=== PATIENT | male | born 1960 | race Caucasian/White ===

== ENCOUNTER 2023-03-17 13:31 | Emergency (ER) | payer BC, SELFPAY ==
[2023-03-17 13:33] VITALS: BP 132/84; PULSE 82; RESP 16; TEMP 36.7; O2SAT 98; BMI 30.4
--- NOTE | 2023-03-17 13:45 | ED_ITS ---
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 He states this happens to him relatively frequently usually goes disease primary care provider in gets Keflex. He is unable to get in with his PCP today and he is leaving town today for next few days so want to be seen here before he leaves. States he 1st noticed it this morning. This is exactly like his previous cellulitis he states. Denies fevers, chills, weakness, numbness, headache, chest pain, shortness of breath, abdominal pain. States he feels well and just wants to come in to get the antibiotics. Related Data Home Medications Medication Instructions Recorded Confirmed sertraline 100 mg tablet 100 mg PO DAILY 12/07/22 03/17/23 sildenafil (pulm.hypertension) 20 40 - 60 mg PO 03/17/23 mg tablet Allergies Allergy/AdvReac Type Severity Reaction Status Date / Time No Known Drug Allergies Allergy Verified 03/17/23 13:42 Review of Systems Status of ROS: Reports: 10 or more systems reviewed and unremarkable except as noted in History and below [facility] Medical History Below knee amputation ?S88.119A - Complete traumatic amputation at level between knee and ankle, unspecified lower leg, initial encounter (ICD-10) Social History Smoking Status: Never smoker How often do you have a drink containing alcohol: 2-3 times a week How many standard drinks containing alcohol do you have on a typical day: 3 or 4 AUDIT-C Alcohol total score: 4 Non-prescribed substance use: denies use Exam Narrative: Exam Narrative: Const: Well-nourished, Well-developed, in no distress Eyes: PERRL, no conjunctival injection, and symmetrical lids ENMT: Atraumatic external nose and ears. Moist mucous membranes. Neck: Symmetric, trachea midline, No thyromegaly. CVS: RRR, No murmurs or gallops. Peripheral pulses 2+ and equal in all extremities RESP: Unlabored respiratory effort. Clear to auscultation bilaterally. GI: Nontender/Nondistended, No rebound or guarding. MSK:Extremities w/o deformity, Normal Active ROM Skin: Warm, Dry. Cellulitis at the distal aspect of left below-knee amputation Neuro: Normal Muscle tone, No focal neurological deficits. Psych: Awake, Alert, & Oriented x3. Appropriate mood and affect. Const: Vital Signs, click to edit/add: Vital Signs - 24 hr 03/17/23 13:33 Temperature 98.0 F Pulse Rate [Right Pulse Oximeter] 82 Respiratory Rate 16 Blood Pressure [Ri ght Upper Arm] 132/84 Pulse Oximetry 98 Oxygen Delivery Me thod Room Air Course Vital Signs Vital signs: Initial Vital Signs Temperature 98.0 F 03/17/23 13:33 Temperature Source Temporal Artery Scan 03/17/23 13:33 Pulse Rate 82 03/17/23 13:33 Respiratory Rate 16 03/17/23 13:33 Blood Pressure 132/84 03/17/23 13:33 Blood Pressure Mean 100 03/17/23 13:33 Blood Pressure Position Sitting 03/17/23 13:33 Pulse Oximetry 98 03/17/23 13:33 Oxygen Delivery Method Room Air 03/17/23 13:33 Vital Signs Temperature 98.0 F 03/17/23 13:33 Pulse Rate 82 03/17/23 13:33 Respiratory Rate 16 03/17/23 13:33 Blood Pressure 132/84 03/17/23 13:33 Pulse Oximetry 98 03/17/23 13:33 Oxygen Delivery Method Room Air 03/17/23 13:33 Temperature 98.0 F 03/17/23 13:33 Pulse Rate 82 03/17/23 13:33 Respiratory Rate 16 03/17/23 13:33 Blood Pressure 132/84 03/17/23 13:33 Pulse Oximetry 98 03/17/23 13:33 Oxygen Delivery Method Room Air 03/17/23 13:33 Medical Decision Making MDM Narrative Medical decision making narrative: Patient is a 63-year-old male presents emergency department for size to his left leg at the end of his below-knee amputation. He states this happens to him frequently and whenever he gets Keflex it goes away. He denies any of the symptoms says he feels well. States this looks and feels exactly like his previous cellulitis. He is otherwise doing well. Since this is a chronic issue for him otherwise and goes with Keflex and he is having no systemic symptoms with normal vital signs I do not believe is necessary to do further workup on this patient. He was given strict return precautions. Discharge Plan Discharge Clinical Impression: Cellulitis Qualifiers: Site of cellulitis: extremity Site of cellulitis of extremity: lower extremity Laterality: left Qualified Code(s): L03.116 - Cellulitis of left lower limb Patient Disposition: Home, Self-Care Condition: Stable Instructions: Cellulitis (ED) Additional Instructions: Take the Keflex as directed. Follow-up with primary care provider. If he develops any worsening symptoms at all please return to emergency department for further workup. Prescriptions: No Action sertraline 100 mg tablet 100 mg PO DAILY sildenafil (pulm.hypertension) 20 mg tablet 40 - 60 mg PO Follow Up/Referrals: Calderon Gan MD [Primary Care Provider] - Stand Alone Forms: [employer] Info Instructions
== END 2023-03-17 14:06 | disposition home or self-care (01) ==
PROVIDERS: Emergency Provider Student in an Organized Health Care Education/Training Program; PCP Family Medicine
DX: L03.116 Cellulitis of left lower limb (principal)
CPT/HCPCS: 99282; 99283

== ENCOUNTER 2023-03-19 20:20 | Emergency (ER) | payer BC, SELFPAY ==
[2023-03-19 20:28] VITALS: BP 132/76; PULSE 63; RESP 18; TEMP 36.2; O2SAT 96; BMI 30.4
--- NOTE | 2023-03-19 20:48 | ED_ITS ---
HPI - General Adult General Chief complaint: Skin/Abscess/Foreign Body Stated complaint: Skin infection-in th-not improving Time Seen by Provider: 03/19/23 20:42 History of Present Illness HPI narrative: Pt c/o reddness and swelling on left leg at amputation site . Amputation of left leg occurred in 2012. Pt states he gets these infections on and off, but started Keflex on and the rash has worsened. Pt states he was on Keflex in past. Pt's amputated leg has yellow callous on bottom, which pt states is normal because he just got a new prosthetic and needs to break it in. 63-year-old man presenting to the emergency department following up of a diagnosis of cellulitis little over 2 days ago in left below the knee amputation. Was initiated on cephalexin. Per my read of records it looks like distal stump was described as the source. Keflex looks to have been prescribed has b.i.d. although apparently Mr. Harris was recommended to take this every 4 hours he says by nursing on departure; this is puzzling. He has not had any fever. Has had now spreading redness in the left leg. Says the yellow crusting at the end of his stump is chronically there. What is new is the redness that is spreading up toward the posterior knee and inner thigh. Describes it as spreading from the back of the knee up the thigh and then distally. Not from distal leg up. No fever drainage. He is wondering if he needs some IV antibiotics. Related Data Home Medications Medication Instructions Recorded Confirmed sertraline 100 mg tablet 100 mg PO DAILY 12/07/22 03/19/23 sildenafil (pulm.hypertension) 20 40 - 60 mg PO 03/17/23 mg tablet Previous Rx's Medication Instructions Recorded cephalexin 500 mg capsule 500 mg PO TID #21 caps 03/19/23 doxycycline hyclate 100 mg capsule 100 mg PO BID #20 caps 03/19/23 Allergies Allergy/AdvReac Type Severity Reaction Status Date / Time No Known Drug Allergies Allergy Verified 03/19/23 20:32 Review of Systems Status of ROS: Reports: 6 or more systems reviewed and unremarkable except as noted in History and below [facility] Medical History Below knee amputation ?S88.119A - Complete traumatic amputation at level between knee and ankle, unspecified lower leg, initial encounter (ICD-10) Social History Smoking Status: Never smoker Do you use any of these nicotine containing products: None Second hand tobacco smoke exposure: No How often do you have a drink containing alcohol: 2-3 times a week How many standard drinks containing alcohol do you have on a typical day: 3 or 4 AUDIT-C Alcohol total score: 4 Non-prescribed substance use: denies use service: No Exam Narrative: Exam Narrative: Pleasant. NAD. Left leg elevated in exam chair. Blotchy calor and associated mild redness in the posterior medial calf anti-geniculate area and inner left thigh. Little tender. More indurated centrally just the lower aspect of the geniculate fossa into the thigh. About 2 in in diameter area. There is a spot, almost like a small venous prominence, that almost appears to be in the lower aspect of this indurated area. I think this is more this site actually than the distal stump which does have surrounding erythema to this yellow crusting patch but no calor or actual induration to the skin there. Heart in regular rate and rhythm. Is not terribly tender to palpation in the areas as mentioned above Const: Vital Signs, click to edit/add: Vital Signs - 24 hr 03/19/23 20:28 Temperature 97.1 F L Pulse Rate [Pulse Oximeter] 63 Respiratory Rate 18 Blood Pressure [Ri ght Upper Arm] 132/76 Pulse Oximetry 96 Oxygen Delivery Me thod Room Air Documenting provider has reviewed patient's vital signs: yes Course Vital Signs Vital signs: Initial Vital Signs Temperature 97.1 F L 03/19/23 20:28 Temperature Source Temporal Artery Scan 03/19/23 20:28 Pulse Rate 63 03/19/23 20:28 Respiratory Rate 18 03/19/23 20:28 Blood Pressure 132/76 03/19/23 20:28 Blood Pressure Mean 94 03/19/23 20:28 Blood Pressure Position Sitting 03/19/23 20:28 Pulse Oximetry 96 03/19/23 20:28 Oxygen Delivery Method Room Air 03/19/23 20:28 Vital Signs Temperature 97.1 F L 03/19/23 20:28 Pulse Rate 63 03/19/23 20:28 Respiratory Rate 18 03/19/23 20:28 Blood Pressure 132/76 03/19/23 20:28 Pulse Oximetry 96 03/19/23 20:28 Oxygen Delivery Method Room Air 03/19/23 20:28 Temperature 97.1 F L 03/19/23 20:28 Pulse Rate 63 03/19/23 20:28 Respiratory Rate 18 03/19/23 20:28 Blood Pressure 132/76 03/19/23 20:28 Pulse Oximetry 96 03/19/23 20:28 Oxygen Delivery Method Room Air 03/19/23 20:28 Medical Decision Making MDM Narrative Medical decision making narrative: I would check labs now. Does appear to have a cellulitis. Does not appear to be fluctuant or consistent with any abscess formation at this time. Will need to clarify cephalexin dosing. I discussed already breaking in this new prosthetic as likely source of irritation causing cellulitis. Expresses a reluctance not to wear it and go to crutching temporarily, but I think this is going to be important. IVs established. White count is indeed elevated at about 13.4. CRP also elevated. Given a dose of Rocephin. The rash would appear to be more of a strep organism though I think it would be prudent to cover better for staph as well. I am not sure we have seen antibiotic failure just unusual dosing regimen. Also given a dose of doxycycline here and to continue outpatient in addition to the cephalexin. Blood cultures are also pending. Was given IV hydration. Over time in the emergency department there did appear to be some spread of this redness. Attempted to outline. I presume this to be trajectory. Will need some time to catch up. There was no fever. See patient discharge plan Lab Data Lab results reviewed: Yes I reviewed the patient's lab results Labs: Lab Results 03/19/23 Range/Units 19:15 WBC 13.40 H (4.50-11.00) K/uL RBC 4.38 (4.30-5.90) m/uL Hgb 13.7 (13.5-17.5) gm/dL Hct 40.0 (37.0-53.0) % MCV 91 (80-100) fL MCH 31 (26-34) pg MCHC 34 (32-36) gm/dL RDW Coeff of Vignesh 12.9 (11.5-15.5) % Plt Count 260 (140-440) K/uL Neut % (Auto) 59.5 (42.0-72.0) % Lymph % (Auto) 30.3 (20-44) % [place] % (Auto) 9.0 (0.0-11.0) % Eos % (Auto) 0.7 (0.0-7.0) % Baso % (Auto) 0.4 (0.0-3.0) % Neut # (Auto) 8.00 H (1.7-7.0) K/uL Lymph # (Auto) 4.10 H (0.90-2.90) K/uL [place] # (Auto) 1.20 H (0.00-0.90) K/UL Eos # (Auto) 0.10 (0.00-0.50) K/uL Baso # (Auto) 0.10 (0.00-0.30) K/uL Abs Immat Gran (auto) 0.00 (0.00-0.30) K/uL Imm/Tot Granulo (auto) 0.1 % Sodium 137 (135-149) mmol/L Potassium 4.0 (3.6-5.1) mmol/L Chloride 104 (96-114) mmol/L Carbon Dioxide 24 (20-32) mmol/L Anion Gap 9 (7-15) mEq/L BUN 15 (7-30) mg/dL Creatinine 0.7 (0.5-1.5) mg/dL Estimated Creat Clear 72.20 Estimated GFR 103 ml/min Glucose 98 (60-115) mg/dL Calcium 9.4 (8.4-10.6) mg/dL C-Reactive Protein 8.2 H (0.5-1.0) mg/dL Discharge Plan Discharge Clinical Impression: Cellulitis Patient Disposition: Home, Self-Care Condition: Stable Additional Instructions: Report/return for fever, marked increase in pain or redness or heat , spreading 2 inches beyond the outline. Be sure to get your leg elevated at the level of your heart at rest. Try to avoid wearing your prosthetic over this next week if possible. I do think it is important. If you need crutches we can supply you with some. Change cephalexin dosing to 500 mg 3 times a day. Will add some doxycycline to that as well. Updated cephalexin script will be at the pharmacy as well as doxycycline. All to complete a total of 10 days of treatment. Protect yourself from the sun while taking doxycycline and for a few days beyond the course. Activity Level: No Restrictions Discharge Diet: Regular Prescriptions: New doxycycline hyclate 100 mg capsule 100 mg PO BID Qty: 20 0RF cephalexin 500 mg capsule 500 mg PO TID Qty: 21 0RF No Action sertraline 100 mg tablet 100 mg PO DAILY sildenafil (pulm.hypertension) 20 mg tablet 40 - 60 mg PO Follow Up/Referrals: Calderon Gan MD [Primary Care Provider] - Stand Alone Forms: [employer] Info Instructions
[2023-03-19 21:21] LABS: Basophils Percent Auto 0.4 % (0.0-3.0); Eosinophils Percent Auto 0.7 % (0.0-7.0); Hemoglobin* 13.7 gm/dL (13.5-17.5); Immature Granulocytes Pct Auto 0.1 %; Lymphocytes Percent Auto 30.3 % (20-44); Mean Corpuscular HGB Conc 34 gm/dL (32-36); Mean Corpuscular Hemoglobin 31 pg (26-34); Mean Corpuscular Volume 91 fL (80-100); Neutrophils Percent Auto 59.5 % (42.0-72.0); Platelet Count* 260 K/uL (140-440); RDW Coefficient of Variation % 12.9 % (11.5-15.5); Red Blood Count 4.38 m/uL (4.30-5.90)
[2023-03-19] MEDS: 0.9 % SODIUM CHLORIDE 1000 ml 1,000 ML IV (21:23)
[2023-03-19 21:42] LABS: Slide Review Reflex No
[2023-03-19 21:55] LABS: Chloride* 104 mmol/L (96-114); Sodium* 137 mmol/L (135-149)
[2023-03-19 21:57] LABS: Creatinine* 0.7 mg/dL (0.5-1.5); Estimated Glomerular Filt Rate 103 ml/min
[2023-03-19 21:58] LABS: Anion Gap 9 mEq/L (7-15); Blood Urea Nitrogen* 15 mg/dL (7-30); Carbon Dioxide* 24 mmol/L (20-32); Glucose* 98 mg/dL (60-115)
[2023-03-19 21:59] LABS: Calcium* 9.4 mg/dL (8.4-10.6)
[2023-03-19 22:01] LABS: C Reactive Protein* 8.2 mg/dL (0.5-1.0)
[2023-03-19] MEDS: cefTRIAXone 1 GM in 0.9 % SODIUM CHLORIDE Mini-bag 100 ML IVPB (22:13)
[2023-03-19] MEDS: DOXYCYCLINE HYCLATE 100 MG PO (23:29)
== END 2023-03-19 23:40 | disposition home or self-care (01) ==
PROVIDERS: Emergency Provider Family Medicine; PCP Family Medicine
DX: L03.116 Cellulitis of left lower limb (principal); Z89.512 Acquired absence of left leg below knee
CPT/HCPCS: 36415; 80048; 85025; 86140; 87040; 96361; 96374; 99283; 99284; A9270; J0696; J7030

== ENCOUNTER 2023-03-21 13:56 | Inpatient (IN) | payer BC, SELFPAY ==
[2023-03-21 14:04] VITALS: BP 145/80; PULSE 60; RESP 16; TEMP 35.9; O2SAT 97; BMI 30.4
--- NOTE | 2023-03-21 15:04 | ED.GENADULT ---
HPI - General Adult General Time Seen by Provider: 15:04 Date Seen: 03/21/23 Chief complaint: Skin/Abscess/Foreign Body Stated complaint: Infection L leg Time Seen by Provider: 03/21/23 14:56 Source: patient, RN notes reviewed and old records reviewed Mode of arrival: ambulatory Limitations: no limitations History of Present Illness HPI narrative: Miguel is a 63-year-old male coming in with ongoing pain, redness and swelling along the distal aspect of his left stump where he had a below the knee amputation. In 2012 patient had a left [id number] amputation done for recurrent infections and issues from a prior traumatic event with farm equipment. He has had recurrent cellulitis along this medial left lower stump. He recently did get a new sleeve and has a new callus on the distal aspect. The pain is more medially. He did come into the ER on March 17 and did get Keflex, there is a question of dosing of this. He returned for ongoing symptoms on March 19, did get a dose of IV Rocephin, his Keflex was increased to 3 times a day, 500 mg and doxycycline was added in. [place] 19 [place] [address] and C reactive protein elevated at 8.2. He is not feeling improved as far as the skin changes in the pain in the area of redness. He has been leaving the prosthetic off, walking with crutches to try to allow this to settle. He has not had any documented fevers but on and Tuesday of this last week had episodes where he felt chilled and nauseated with it, just did not feel well. None since then. He does not recollect any history of MRSA. Related Data Home Medications Medication Instructions Recorded Confirmed sertraline 100 mg tablet 100 mg PO DAILY 12/07/22 03/19/23 sildenafil (pulm.hypertension) 20 40 - 60 mg PO 03/17/23 mg tablet Previous Rx's Medication Instructions Recorded cephalexin 500 mg capsule 500 mg PO TID #21 caps 03/19/23 doxycycline hyclate 100 mg capsule 100 mg PO BID #20 caps 03/19/23 Allergies Allergy/AdvReac Type Severity Reaction Status Date / Time No Known Drug Allergies Allergy Verified 03/19/23 20:32 Review of Systems Status of ROS: Reports: 6 or more systems reviewed and unremarkable except as noted in History and below [facility] Medical History Below knee amputation ?S88.119A - Complete traumatic amputation at level between knee and ankle, unspecified lower leg, initial encounter (ICD-10) Social History Smoking Status: Never smoker Do you use any of these nicotine containing products: None Second hand tobacco smoke exposure: No How often do you have a drink containing alcohol: 2-3 times a week How many standard drinks containing alcohol do you have on a typical day: 3 or 4 AUDIT-C Alcohol total score: 4 Non-prescribed substance use: denies use service: No Exam Const: Vital Signs, click to edit/add: Vital Signs - 24 hr 03/21/23 14:04 Temperature 96.7 F L Pulse Rate [Pulse Oximeter] 60 Respiratory Rate 16 Blood Pressure [Ri ght Upper Arm] 145/80 H Pulse Oximetry 97 Oxygen Delivery Me thod Room Air Patient is a very pleasant 63-year-old gentleman. He is alert, interactive, no apparent distress. Face is atraumatic, speech normal. Lungs are clear with good air entry, no wheezing crackles, no tachypnea. CV regular rate and rhythm, no murmur, normal S1 and S2. His left stump has a callus at the distal aspect but is not tender, there is no expressible discharge. The erythema that he is tender is more along this medial aspect that starts along the medial knee, does not go up to the thigh. He does state there is a little tenderness along this medial left thigh but there is no erythema. I do not feel any palpable cord, there is erythema heat and swelling without fluctuance along this medial stump area. Documenting provider has reviewed patient's vital signs: yes Course Course Hospital Course: Besides cellulitis that is not responding to current medical management, do think thromboembolic disease needs to be considered here. We will get an ultrasound, repeat his labs, will place an IV. If this is looking to be more cellulitic process that is not responding to outpatient doxycycline and Keflex together, do need to consider antibiotics. Imaging might need to be considered of this extremity to ensure that there is no underlying abscess which is not clinically evident based on exam. I do not feel we need to proceed with advanced imaging at this time. Patient is ultimately interested in IV antibiotics if clinically appropriate and agree that we do need to consider this if we do feel that cellulitis is the path we are taking. I am not doing blood cultures at this time as patient has been on oral antibiotics for days, has no vital sign changes in clinically looks quite stable. Reevaluation(s) Time of Reevaluation #1: 17:08 Reevaluation #1: Reviewed with patient the plan for hospitalization, initiation of IV vancomycin and further advanced imaging of his extremity tomorrow. He is in agreement with this plan. Consultations Consultation #1: Have reviewed case with Dr. Mills, she agrees with hospitalization, initiation of vancomycin and further advanced imaging to be done tomorrow. Will update the patient. Time: 16:50 Vital Signs Vital signs: Initial Vital Signs Temperature 96.7 F L 03/21/23 14:04 Temperature Source Temporal Artery Scan 03/21/23 14:04 Pulse Rate 60 03/21/23 14:04 Respiratory Rate 16 03/21/23 14:04 Blood Pressure 145/80 H 03/21/23 14:04 Blood Pressure Mean 101 03/21/23 14:04 Blood Pressure Position Sitting 03/21/23 14:04 Pulse Oximetry 97 03/21/23 14:04 Oxygen Delivery Method Room Air 03/21/23 14:04 Vital Signs Temperature 96.7 F L 03/21/23 14:04 Pulse Rate 60 03/21/23 14:04 Respiratory Rate 16 03/21/23 14:04 Blood Pressure 145/80 H 03/21/23 14:04 Pulse Oximetry 97 03/21/23 14:04 Oxygen Delivery Method Room Air 03/21/23 14:04 Temperature 96.7 F L 03/21/23 14:04 Pulse Rate 60 03/21/23 14:04 Respiratory Rate 16 03/21/23 14:04 Blood Pressure 145/80 H 03/21/23 14:04 Pulse Oximetry 97 03/21/23 14:04 Oxygen Delivery Method Room Air 03/21/23 14:04 Medical Decision Making Lab Data Labs: Lab Results 03/21/23 Range/Units 15:34 WBC 10.32 (4.50-11.00) K/uL RBC 4.44 (4.30-5.90) m/uL Hgb 13.9 (13.5-17.5) gm/dL Hct 41.6 (37.0-53.0) % MCV 94 (80-100) fL MCH 31 (26-34) pg MCHC 33 (32-36) gm/dL RDW Coeff of Vignesh 13.1 (11.5-15.5) % Plt Count 300 (140-440) K/uL Neut % (Auto) 46.4 (42.0-72.0) % Lymph % (Auto) 42.7 (20-44) % [place] % (Auto) 7.3 (0.0-11.0) % Eos % (Auto) 2.6 (0.0-7.0) % Baso % (Auto) 0.8 (0.0-3.0) % Neut # (Auto) 4.79 (1.7-7.0) K/uL Lymph # (Auto) 4.41 H (0.90-2.90) K/uL [place] # (Auto) 0.80 (0.00-0.90) K/UL Eos # (Auto) 0.27 (0.00-0.50) K/uL Baso # (Auto) 0.08 (0.00-0.30) K/uL Abs Immat Gran (auto) 0.02 (0.00-0.30) K/uL Imm/Tot Granulo (auto) 0.2 % Sodium 139 (135-149) mmol/L Potassium 4.1 (3.6-5.1) mmol/L Chloride 105 (96-114) mmol/L Carbon Dioxide 26 (20-32) mmol/L Anion Gap 8 (7-15) mEq/L BUN 17 (7-30) mg/dL Creatinine 0.7 (0.5-1.5) mg/dL Estimated Creat Clear 72.20 Estimated GFR 103 ml/min Glucose 94 (60-115) mg/dL Lactate 0.9 (0.5-1.9) mmol/L Calcium 9.6 (8.4-10.6) mg/dL C-Reactive Protein 6.8 H (0.5-1.0) mg/dL Imaging Data Venous US: Attestation: I have reviewed the pertinent imaging results. Radiologist's impression: Patient: ASHISH COX Facility:[facility] Patient ID:?[id number] Site Patient ID:?[id number]. Site :?[id number] Study:?US Extremity Left LEV-03/21/2023 4:20:19 PM Ordering Physician:Chandler Richardson Final Report: INDICATION: Redness, swelling, pain, status post [id number] amputation TECHNIQUE: Ultrasound venous duplex lower left extremity. Compression venous exam was performed using ford-scale, color Doppler, and spectral Doppler analysis. COMPARISON: None. FINDINGS: Sonographic imaging demonstrates the left common femoral, femoral, popliteal, and greater saphenous and the contralateral right common femoral veins to be fully compressible with normal color Doppler blood flow. Status post [id number] amputation, therefore no posterior tibial veins are present. Small amount of free fluid/edema within the medial left lower extremity at the areas of redness. IMPRESSION: 1. No sonographic evidence of a left lower extremity deep venous thrombosis. 2. Small amount of free fluid/edema within the medial left lower extremity. Findings could be postsurgical, however correlate for superimposed infection. Dictated by Maryuri Chatterjee MD @ 03/21/2023 4:42:48 PM Dictated by: Maryuri Chatterjee MD @ 03/21/2023 16:43:44 Discharge Plan Discharge Clinical Impression: Cellulitis Patient Disposition: Admitted As Observation
--- NOTE | 2023-03-21 15:19 | CRLHL7_ITS ---
For Patients: As a result of the Century Cures Act, medical imaging exams and procedure reports are released immediately into your electronic medical record. You may view this report before your referring provider. If you have questions, please contact your health care provider. INDICATION: Redness, swelling, pain, status post fykbz-ibw-upwz amputation TECHNIQUE: Ultrasound venous duplex lower left extremity. Compression venous exam was performed using ford-scale, color Doppler, and spectral Doppler analysis. COMPARISON: None. FINDINGS: Sonographic imaging demonstrates the left common femoral, femoral, popliteal, and greater saphenous and the contralateral right common femoral veins to be fully compressible with normal color Doppler blood flow. Status post [id number] amputation, therefore no posterior tibial veins are present. Small amount of free fluid/edema within the medial left lower extremity at the areas of redness. IMPRESSION: 1. No sonographic evidence of a left lower extremity deep venous thrombosis. 2. Small amount of free fluid/edema within the medial left lower extremity. Findings could be postsurgical, however correlate for superimposed infection. Dictated by Maryuri Chattejree MD @ 03/21/2023 4:42:48 PM Dictated by: Maryuri Chatterjee MD @ 03/21/2023 16:43:44 (Electronically Signed)
[2023-03-21 15:45] LABS: Basophils Absolute Auto 0.08 K/uL (0.00-0.30); Basophils Percent Auto 0.8 % (0.0-3.0); Eosinophils Absolute Auto 0.27 K/uL (0.00-0.50); Eosinophils Percent Auto 2.6 % (0.0-7.0); Hematocrit 41.6 % (37.0-53.0); Hemoglobin* 13.9 gm/dL (13.5-17.5); Immature Granulocytes Abs Auto 0.02 K/uL (0.00-0.30); Immature Granulocytes Pct Auto 0.2 %; Lymphocytes Absolute Auto 4.41 K/uL (0.90-2.90); Lymphocytes Percent Auto 42.7 % (20-44); Mean Corpuscular HGB Conc 33 gm/dL (32-36); Mean Corpuscular Hemoglobin 31 pg (26-34); Mean Corpuscular Volume 94 fL (80-100); Monocytes Percent Auto 7.3 % (0.0-11.0); Neutrophils Absolute Auto 4.79 K/uL (1.7-7.0); Neutrophils Percent Auto 46.4 % (42.0-72.0); Platelet Count* 300 K/uL (140-440); RDW Coefficient of Variation % 13.1 % (11.5-15.5); Red Blood Count 4.44 m/uL (4.30-5.90); White Blood Count* 10.32 K/uL (4.50-11.00)
[2023-03-21 15:47] LABS: Lactate* 0.9 mmol/L (0.5-1.9)
[2023-03-21 16:17] LABS: Chloride* 105 mmol/L (96-114)
[2023-03-21 16:18] LABS: Potassium* 4.1 mmol/L (3.6-5.1); Sodium* 139 mmol/L (135-149)
[2023-03-21 16:20] LABS: Creatinine* 0.7 mg/dL (0.5-1.5); Estimated Glomerular Filt Rate 103 ml/min
[2023-03-21 16:21] LABS: Anion Gap 8 mEq/L (7-15); Blood Urea Nitrogen* 17 mg/dL (7-30); Calcium* 9.6 mg/dL (8.4-10.6); Carbon Dioxide* 26 mmol/L (20-32); Glucose* 94 mg/dL (60-115)
[2023-03-21 16:24] LABS: C Reactive Protein* 6.8 mg/dL (0.5-1.0)
[2023-03-21 16:35] LABS: Slide Review Reflex No
[2023-03-21 17:20] VITALS: BP 169/96; PULSE 51; TEMP 36.1; O2SAT 97
[2023-03-21 18:41] VITALS: BP 155/87; PULSE 70; RESP 16; TEMP 36.8; O2SAT 97; BMI 30.1
--- NOTE | 2023-03-21 19:43 | PM.IMHP1 ---
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 He has had cellulitis of his stump several times before, but never this bad. With the heat recently, he has found his stump gets very sweaty while wearing his sleeve and prosthesis. He did some work on his deck recently and had a few cuts to his hands, but nothing on his legs. On Tuesday he felt some swelling and tenderness coming on in his left lower extremity. On , he had chills and he could see the area looked like cellulitis. He went to the urgent care where he was prescribed cephalexin 3 times a day. He to get as prescribed and has not missed any doses. The infection seemed to get worse despite being on that and so he went back to the emergency department on Tuesday where he was given a dose of ceftriaxone and a prescription for doxycycline. He started taking that Tuesday evening. He had some chills again today. While the redness in the upper thigh has gone down, the tenderness and erythema of the lower left leg have worsened some and it is starting to get swollen in certain areas and feels like there is fluid under the skin. He has been using Tylenol as needed for pain and feels that that is enough. He does not think he has had any fevers, just chills. He denies any shortness of breath. No rashes other than the cellulitis on his leg. Review of Systems Status of ROS: Reports: 10 or more systems reviewed and unremarkable except as noted in History and below [facility] Medical History (Updated 03/21/23 @ 20:38 by Alexia Mills MD) Pterygium of both eyes ?H11.003 - Unspecified pterygium of eye, bilateral (ICD-10) Hyperopia of both eyes with astigmatism and presbyopia ?H52.03 - Hypermetropia, bilateral (ICD-10) ?H52.203 - Unspecified astigmatism, bilateral (ICD-10) ?H52.4 - Presbyopia (ICD-10) Anxiety ?F41.9 - Anxiety disorder, unspecified (ICD-10) Postoperative anemia due to acute blood loss (~06/2016) ?D62 - Acute posthemorrhagic anemia (ICD-10) Post-traumatic osteoarthritis of right hip ?M16.51 - Unilateral post-traumatic osteoarthritis, right hip (ICD-10) Gilbert syndrome ?E80.4 - Gilbert syndrome (ICD-10) Hyperbilirubinemia ?E80.6 - Other disorders of bilirubin metabolism (ICD-10) Hyperplastic colon polyp (~10/2010) ?K63.5 - Polyp of colon (ICD-10) Thoracic or lumbosacral neuritis or radiculitis, unspecified Lumbosacral spondylosis without myelopathy ?M47.817 - Spondylosis without myelopathy or radiculopathy, lumbosacral region (ICD-10) Erectile dysfunction ?N52.9 - Male erectile dysfunction, unspecified (ICD-10) Surgical History (Updated 03/21/23 @ 18:21 by Alexia Mills MD) History of open reduction and internal fixation (ORIF) procedure (~07/17/16) ?Z98.890 - Other specified postprocedural states (ICD-10) Hx of total hip arthroplasty (~06/2016) ?Z96.649 - Presence of unspecified artificial hip joint (ICD-10) History of ankle surgery ?Z98.890 - Other specified postprocedural states (ICD-10) H/O colonoscopy ?Z98.890 - Other specified postprocedural states (ICD-10) Below knee amputation (~08/2012) ?S88.119A - Complete traumatic amputation at level between knee and ankle, unspecified lower leg, initial encounter (ICD-10) Family History (Updated 03/21/23 @ 18:23 by Alexia Mills MD) Father Prostate cancer, Onset Age: 65 Mother Dementia Paternal Grandfather Diabetes Parkinsonism Social History (Updated 03/21/23 @ 19:50 by Alexia Mills MD) Narrative: [place]. Denies tobacco use. Lifelong nonsmoker. EtOH 2-3 beers per week. Denies recreational drug use. Full Code. What is your current living situation?: I presently have a place to live Problems where you live: no known problems Problems where you live details: n/a In the past 12 months, utilities in danger of being shut off: no In the past 12 mos, have been you worried that your food would run out before you had money to buy more?: never true In the past 12 mos, the food you bought just didn't last and you didn't have money to buy more?: never true Highest level of school completed/degree received: high school graduate Smoking Status: Never smoker Do you use any of these nicotine containing products: None Second hand tobacco smoke exposure: No How often do you have a drink containing alcohol: 2-3 times a week How many standard drinks containing alcohol do you have on a typical day: 3 or 4 AUDIT-C Alcohol total score: 4 Non-prescribed substance use: denies use Caffeine: No How often does anyone, including family, friends and others, physically hurt you: never How often does anyone, including family, friends and others, insult or talk down to you: never How often does anyone, including family, friends and others, threaten you with harm: never How often does anyone, including family, friends and others, scream or curse at you: never service: No Meds Home Medications and Allergies Home Medications Medication Instructions Recorded Confirmed Type sertraline 100 mg tablet 100 mg PO DAILY 12/07/22 03/21/23 History sildenafil (pulm.hypertension) 20 40 - 60 mg PO PRN 03/17/23 History mg tablet Home Medication Comments: Cephalexin 500 mg TID started 03/17/23 Doxycycline 100 mg BID started 03/19/23 Allergies Allergy/AdvReac Type Severity Reaction Status Date / Time No Known Drug Allergies Allergy Verified 03/19/23 20:32 Exam Narrative: Exam Narrative: General: No acute distress. Awake alert oriented x3. HEENT: Normocephalic atraumatic, pupils equally round and reactive to light and accommodation. Oropharynx clear. Mucous membranes are moist. No cervical lymphadenopathy, thyromegaly or carotid bruits. No JVD. Cardiovascular: Regular rate and rhythm. No murmurs, gallops, or rubs. Chest: No increased work of breathing. Clear to auscultation bilaterally. No crackles or wheezes. Abdomen: Bowel sounds present. Soft, nondistended, nontender. No hepatosplenomegaly or masses. Extremities: RLE: No edema, no cyanosis or clubbing. LBKA: chronic callous at base of stump with mild surrounding erythema, not indurated, non tender. Induration with calor, rubor, tenderness over medial left leg, just below knee. There are two fluctuant areas here as well that are tender to palpation, about the size of a large marble. No open areas or drainage. Mild erythema without tenderness extends up the thigh medially about detention to groin. This is very light and difficult to discern. Patient states this area has improved since Tuesday. Skin: No jaundice, no pallor, no other rashes. Const: Vital Signs, click to edit/add: Vital Signs - 24 hr 03/21/23 14:04 03/21/23 17:20 03/21/23 18:41 Temperature 96.7 F L 96.9 F L 98.3 F Pulse Rate [Pulse Oximeter] 60 51 L 70 Respiratory Rate 16 16 Blood Pressure [Ri ght Arm] 155/87 H Blood Pressure [Ri ght Upper Arm] 145/80 H 169/96 H Pulse Oximetry 97 97 97 Oxygen Delivery Me thod Room Air Room Air Hospitalist - H&P: Result Labs Labs: Short CBC 03/21/23 Range/Units 15:34 WBC 10.32 (4.50-11.00) K/uL Hgb 13.9 (13.5-17.5) gm/dL Hct 41.6 (37.0-53.0) % Plt Count 300 (140-440) K/uL BMP 03/21/23 15:34 Sodium 139 Potassium 4.1 Chloride 105 Carbon Dioxide 26 BUN 17 Creatinine 0.7 Glucose 94 Calcium 9.6 Ordering Physician: Debra Faust M.D. Date of Service: 03/21/23 Procedure(s): US venous LE LT Accession Number(s): [id number] cc: Calderon Gan M.D.; Debra Faust M.D.~ For Patients: As a result of the 21st Century Cures Act, medical imaging exams and procedure reports are released immediately into your electronic medical record. You may view this report before your referring provider. If you have questions, please contact your health care provider. INDICATION: Redness, swelling, pain, status post [id number] amputation TECHNIQUE: Ultrasound venous duplex lower left extremity. Compression venous exam was performed using ford-scale, color Doppler, and spectral Doppler analysis. COMPARISON: None. FINDINGS: Sonographic imaging demonstrates the left common femoral, femoral, popliteal, and greater saphenous and the contralateral right common femoral veins to be fully compressible with normal color Doppler blood flow. Status post [id number] amputation, therefore no posterior tibial veins are present. Small amount of free fluid/edema within the medial left lower extremity at the areas of redness. IMPRESSION: 1. No sonographic evidence of a left lower extremity deep venous thrombosis. 2. Small amount of free fluid/edema within the medial left lower extremity. Findings could be postsurgical, however correlate for superimposed infection. Dictated by Maryuri Chatterjee MD @ 03/21/2023 4:42:48 PM Dictated by: Maryuri Chatterjee MD @ 03/21/2023 16:43:44 (Electronically Signed) Assessment and Plan Assessment and plan (1) Cellulitis: Problem comment: - While it appears the induration, WBC and CRP have improved on doxycycine, he has two fluid collections that may require drainage. Start Vanco and obtain MRI. May need ortho or surgical consultation if there is abscess or osteo. - Elevate LE >12hours out of every 24. 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 Mar 2021: increased sertraline (Zoloft) to 100mg - Continue sertraline Status: Chronic
--- NOTE | 2023-03-21 20:08 | CRLHL7_ITS ---
For Patients: As a result of the Century Cures Act, medical imaging exams and procedure reports are released immediately into your electronic medical record. You may view this report before your referring provider. If you have questions, please contact your health care provider. INDICATION: Redness and swelling. Amputation below the knee. COMPARISON: None. TECHNIQUE: Axial T1 and PD fat-sat, sagittal PD and T2 fat-sat and coronal PD and STIR left knee sequences. FINDINGS: Medial compartment: Meniscus: Intact. Articular cartilage: Shallow grade 2 fissure in the central condyle. Remainder uniform. MCL: Intact. - Cruciate ligaments: ACL: Intact. PCL: Intact. - Lateral compartment: Meniscus: Intact. Articular cartilage: Grade 2 to grade 3 thinning in the anterior inner margin of the condyle. Grade 2 fissure in the central plateau. Lateral collateral complex: Intact. - Patellofemoral compartment: Uniform cartilage thickness and signal. - Extensor mechanism: Distal quadriceps tendon and patellar tendon are intact with anatomic patellar alignment. - Bones and soft tissues: Small effusion. No synovitis. Prominent edema in the subcutaneous soft tissues of the calf extending below the [id number]-su-axsh and along the posterior and medial knee. Some extends into the posterior thigh. No organized fluid. No mass. Fibrillated short-segment fusiform enlargement of the tibial nerve just below the plateau (image 42 series 3 and image 19 series 7 and 8). IMPRESSION: 1. Nonspecific subcutaneous edema. 2. No internal derangement. 3. Minor degenerative chondromalacia medial and lateral compartment. 4. Mild focal enlargement of the tibial nerve. Correlate neuritis or prior injury. Dictated by Henry Trivedi MD @ 03/22/2023 2:45:17 PM (Electronically Signed)
[2023-03-21] MEDS: ENOXAPARIN 40 MG/0.4 ML INJ SUBCUT (20:56)
[2023-03-21] MEDS: ACETAMINOPHEN 325 MG TABLET PO (20:56)
[2023-03-21] MEDS: SODIUM CHLORIDE 0.9 % (FLUSH) 10 ML SYRINGE 5 ML IVF (20:57)
--- NOTE | 2023-03-21 22:26 | PC.NURSE ---
End of shift: Arrived to floor around 1829 with , Millicent. Pt A&O, pleasant and cooperative. Pt complained of intermittent discomfort and requested Tylenol. Tylenol given, upon reassessment pt stated adequate relief. Cellulitis on left stump outlined. Ind w/ crutches. Call light within reach.
[2023-03-21 23:00] VITALS: BP 116/68; PULSE 56; RESP 16; TEMP 36.8; O2SAT 95
[2023-03-22 03:00] VITALS: BP 129/74; PULSE 59; RESP 16; TEMP 36.9; O2SAT 97
--- NOTE | 2023-03-22 06:24 | PC.NURSE ---
Shift note: Pt has been sleeping well tonight. Ambulated independently with clutches to BR. No drainage from the infected area to the left knee but 2 separate yellowish areas noted. No fever and chills. Vitally stable. No swelling and redness beyond the marked area of the left knee. Denied any pain.
[2023-03-22 07:40] VITALS: BP 129/78; PULSE 64; RESP 16; TEMP 36.9; O2SAT 95
[2023-03-22] MEDS: SODIUM CHLORIDE 0.9 % (FLUSH) 10 ML SYRINGE 5 ML IVF ×3 (08:14→20:22)
[2023-03-22] MEDS: SERTRALINE 100 MG TABLET PO (08:17)
--- NOTE | 2023-03-22 09:06 | P.IMPN_ITS ---
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 Valeriy remains afebrile, WBC has improved this morning. Still notes warmth/redness around LLE. Exam Narrative: Exam Narrative: GEN: Alert and oriented, nontoxic HEENT: EOMIs bilaterally, no scleral icterus CV: RRR, No concerning murmurs, rubs, or gallops R: LCTA bilaterally without concerning wheezing, air movement adequate Skin: Callous on distal end of stump with yellowish discoloration (chronic and unchanged, per pt). Confluent erythema extends from callous proximally (has not extended past outline) Neuro: No focal deficits Psych: Appropriate Const: Vital Signs, click to edit/add: Vital Signs - 24 hr 03/21/23 14:04 03/21/23 17:20 03/21/23 18:41 Temperature 96.7 F L 96.9 F L 98.3 F Pulse Rate [Pulse Oximeter] 60 51 L 70 Respiratory Rate 16 16 Blood Pressure [Ri ght Arm] 155/87 H Blood Pressure [Ri ght Upper Arm] 145/80 H 169/96 H Pulse Oximetry 97 97 97 Oxygen Delivery Me thod Room Air Room Air 03/21/23 23:00 03/21/23 23:00 03/22/23 03:00 Temperature 98.2 F 98.5 F Pulse Rate [Pulse Oximeter] 56 L 59 L Respiratory Rate 16 16 16 Blood Pressure [Ri ght Arm] 116/68 129/74 Blood Pressure [Ri ght Upper Arm] Pulse Oximetry 95 97 Oxygen Delivery Me thod Room Air Room Air 03/22/23 07:40 Temperature 98.4 F Pulse Rate [Pulse Oximeter] 64 Respiratory Rate 16 Blood Pressure [Ri ght Arm] 129/78 Blood Pressure [Ri t Upper Arm] Pulse Oximetry 95 Oxygen Delivery Me thod Room Air Labs Labs: Laboratory Results - last 24 hr 03/21/23 15:34 WBC 10.32 RBC 4.44 Hgb 13.9 Hct 41.6 MCV 94 MCH 31 MCHC 33 RDW Coeff of Vignesh 13.1 Plt Count 300 Neut % (Auto) 46.4 Lymph % (Auto) 42.7 [place] % (Auto) 7.3 Eos % (Auto) 2.6 Baso % (Auto) 0.8 Neut # (Auto) 4.79 Lymph # (Auto) 4.41 H [place] # (Auto) 0.80 Eos # (Auto) 0.27 Baso # (Auto) 0.08 Abs Immat Gran (auto) 0.02 Imm/Tot Granulo (auto) 0.2 Sodium 139 Potassium 4.1 Chloride 105 Carbon Dioxide 26 Anion Gap 8 BUN 17 Creatinine 0.7 Estimated Creat Clear 72.20 Estimated GFR 103 Glucose 94 Lactate 0.9 Calcium 9.6 C-Reactive Protein 6.8 H
[2023-03-22 11:42] VITALS: BP 138/96; PULSE 78; RESP 16; TEMP 37.1; O2SAT 96
[2023-03-22 15:00] VITALS: BP 155/81; PULSE 62; RESP 16; TEMP 36.8; O2SAT 95
--- NOTE | 2023-03-22 15:11 | PC.NURSE ---
End of Shift... Up ad kenzie w/ crutches. LLE is amputated. No reports of pain this shift. Erythema around the stump and to the upper thigh (circled). Treating for cellulitis. MRI was complete early this afternoon, awaiting results. VSS on RA, receiving IV abx 2x a day. No other concerns at this time, call light within reach.
[2023-03-22 19:00] VITALS: BP 112/70; PULSE 63; RESP 16; TEMP 36.7; O2SAT 94
[2023-03-22] MEDS: ENOXAPARIN 40 MG/0.4 ML INJ SUBCUT (20:22)
--- NOTE | 2023-03-22 22:09 | PC.NURSE ---
End of Shift: Patient pleasant and cooperative. Afebrile. Denies pain. Redness to left lower extremity outlined and receding slightly from marking, elevated. Up independently in room. Tolerating regular diet with no nausea.
[2023-03-22 23:41] VITALS: BP 122/74; PULSE 56; RESP 16; TEMP 36.7; O2SAT 95
[2023-03-23 03:02] VITALS: BP 123/69; PULSE 59; RESP 18; TEMP 36.7; O2SAT 95
[2023-03-23] MEDS: 0.9 % SODIUM CHLORIDE 250 ml IV (06:32)
[2023-03-23 06:41] LABS: Basophils Absolute Auto 0.07 K/uL (0.00-0.30); Basophils Percent Auto 0.9 % (0.0-3.0); Eosinophils Absolute Auto 0.32 K/uL (0.00-0.50); Hematocrit 40.4 % (37.0-53.0); Hemoglobin* 13.5 gm/dL (13.5-17.5); Immature Granulocytes Abs Auto 0.02 K/uL (0.00-0.30); Immature Granulocytes Pct Auto 0.2 %; Lymphocytes Absolute Auto 3.35 K/uL (0.90-2.90); Lymphocytes Percent Auto 41.6 % (20-44); Mean Corpuscular HGB Conc 33 gm/dL (32-36); Mean Corpuscular Hemoglobin 31 pg (26-34); Mean Corpuscular Volume 92 fL (80-100); Monocytes Percent Auto 7.2 % (0.0-11.0); Neutrophils Absolute Auto 3.71 K/uL (1.7-7.0); Neutrophils Percent Auto 46.1 % (42.0-72.0); Platelet Count* 276 K/uL (140-440); RDW Coefficient of Variation % 12.7 % (11.5-15.5); Red Blood Count 4.37 m/uL (4.30-5.90); White Blood Count* 8.05 K/uL (4.50-11.00)
--- NOTE | 2023-03-23 06:43 | PC.NURSE ---
End of shift: A&O pleasant and cooperative. VSS. Denies pain. Left leg red and warm to touch. Leg elevated. Ind in room. Call light within reach.
[2023-03-23 06:46] LABS: Slide Review Reflex No
[2023-03-23 06:54] LABS: Chloride* 105 mmol/L (96-114); Potassium* 4.4 mmol/L (3.6-5.1); Sodium* 137 mmol/L (135-149)
[2023-03-23 06:57] LABS: Creatinine* 0.7 mg/dL (0.5-1.5); Estimated Glomerular Filt Rate 103 ml/min
[2023-03-23 06:58] LABS: Anion Gap 3 mEq/L (7-15); Calcium* 9.5 mg/dL (8.4-10.6); Carbon Dioxide* 29 mmol/L (20-32); Glucose* 92 mg/dL (60-115)
[2023-03-23 07:01] LABS: C Reactive Protein* 5.2 mg/dL (0.5-1.0)
[2023-03-23 07:15] LABS: Blood Urea Nitrogen* 20 mg/dL (7-30)
[2023-03-23 08:30] VITALS: BP 127/75; PULSE 55; RESP 16; TEMP 36.6; O2SAT 95
[2023-03-23] MEDS: SERTRALINE 100 MG TABLET PO (08:41)
[2023-03-23] MEDS: SODIUM CHLORIDE 0.9 % (FLUSH) 10 ML SYRINGE 5 ML IVF (08:41)
--- NOTE | 2023-03-23 09:07 | PM.DS1 ---
DS: Providers Provider Date Seen: 03/23/23 Date of admission: 03/21/23 20:08 Primary care physician: Calderon Gan MD Admitting Clinician: Alexia Mills MD Attending Physician on discharge: Tayler Jimenez MD Date of Discharge: 03/23/23 DS: Diagnosis Discharge Diagnosis (1) Cellulitis: Status: Acute Problem details: - failed Keflex and one day of Doxycyline prior to admission - Vancomycin initiated 03/21/23, MRI 03/22/23 revealed no acute abnormalities - objective and subjective improvement on hospital day 2 (2) Below knee amputation: Status: Chronic Problem details: - Farm crush injury in high school with 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 He was started on IV Vancomycin, had reassuring imaging (both MRI and ultrasound), and objectively/subjectively improved during stay. Blood cultures remained negative. No changes noted to chronic conditions. Patient medically appropriate for discharge home on 03/23/23 with close PCP f/u. Status at Discharge Functional status at discharge: independent ambulation Overall status at discharge: patient is back to baseline Time Spent with Patient Time attestation: Total time spent providing and/or coordinating discharge services: Time spent: Less than 30 minutes Exam Narrative: Exam Narrative: GEN: Alert and oriented, nontoxic, sitting comfortably in bedside chair HEENT: EOMIs bilaterally, no scleral icterus, oropharynx moist and clear CV: RRR, No concerning murmurs R: LCTA bilaterally without concerning wheezing, breathing comfortably Skin: Callous on distal end of stump remains indurated and discolored (stable). Confluent erythema over area has improved, not warm Neuro: No focal deficits Psych: Appropriate Const: Vital Signs, click to edit/add: Vital Signs - 24 hr 03/22/23 11:42 03/22/23 15:00 03/22/23 15:00 Temperature 98.7 F 98.2 F Pulse Rate [Pulse Oximeter] 78 62 62 Respiratory Rate 16 16 16 Blood Pressure [Ri ght Arm] 138/96 H 155/81 H Pulse Oximetry 96 95 Oxygen Delivery Me thod Room Air Room Air 03/22/23 19:00 03/22/23 23:41 03/23/23 03:02 Temperature 98.0 F 98.1 F 98.0 F Pulse Rate [Pulse Oximeter] 63 56 L 59 L Respiratory Rate 16 16 18 Blood Pressure [Ri ght Arm] 112/70 122/74 123/69 Pulse Oximetry 94 95 95 Oxygen Delivery Me thod Room Air Room Air Room Air 03/23/23 08:30 Temperature 97.9 F Pulse Rate [Pulse Oximeter] 55 L Respiratory Rate 16 Blood Pressure [Ri ght Arm] 127/75 Pulse Oximetry 95 Oxygen Delivery Me thod Room Air DS: Data Data Completed and Pending Labs on day of discharge: Labs from last 24 hours 03/23/23 06:10 WBC 8.05 RBC 4.37 Hgb 13.5 Hct 40.4 MCV 92 MCH 31 MCHC 33 RDW Coeff of Vignesh 12.7 Plt Count 276 Neut % (Auto) 46.1 Lymph % (Auto) 41.6 [place] % (Auto) 7.2 Eos % (Auto) 4.0 Baso % (Auto) 0.9 Neut # (Auto) 3.71 Lymph # (Auto) 3.35 H [place] # (Auto) 0.60 Eos # (Auto) 0.32 Baso # (Auto) 0.07 Abs Immat Gran (auto) 0.02 Imm/Tot Granulo (auto) 0.2 Sodium 137 Potassium 4.4 Chloride 105 Carbon Dioxide 29 Anion Gap 3 L BUN 20 Creatinine 0.7 Estimated Creat Clear 72.20 Estimated GFR 103 Glucose 92 Calcium 9.5 C-Reactive Protein 5.2 H Discharge Plan Discharge Disposition: Home, Self-Care Date of Admission: 03/21/23 20:08 Attending Provider on Discharge: Tayler Jimenez Primary Care Provider: Calderon Gan Condition: Improved Anticipated Discharge Date/Time: 03/23/23 09:03 Discharge Medications: New cephalexin 500 mg capsule 500 mg PO TID 8 Days Qty: 24 0RF Continued sertraline 100 mg tablet 100 mg PO DAILY sildenafil (pulm.hypertension) 20 mg tablet 40 - 60 mg PO PRN doxycycline hyclate 100 mg capsule 100 mg PO BID Qty: 20 0RF cephalexin 500 mg capsule 500 mg PO TID Qty: 21 0RF Discharge Orders: Discharge Order (Routine); Ordered 03/23/23 Ordered By: Tayler Jimenez Patient Education: Cephalexin (By mouth), Cellulitis (GEN) Additional Instructions: Take both the Doxycycline (twice per day) and the Keflex (thrice per day) until gone. The Doxycycline will increase your risk of sun sensitivity, so make sure you're wearing sun screen. See Dr. Gan as scheduled, you need to see us again if anything changes or worsens in the meantime. Activity Level: Activity as Tolerated Discharge Diet: Regular Follow Up Appointments: Calderon Gan MD [Primary Care Provider] - 03/28/23 1:50 pm ([facility] f/u. ) Forms: [employer] Info Instructions
--- NOTE | 2023-03-23 11:51 | PC.NURSE ---
Discharge note- Pt discharged home with all discharge instructions @ 1122. Via wheelchair, picked him up from the main entrance. He had his crutches with as well as all other personal belongings. Education was given on taking all of his antibiotics as well as follow up if his erythema/ warmth does not get better. All questions were answered.
== END 2023-03-23 11:22 | disposition home or self-care (01) | DRG 383 ==
LOC: ED 17:09 → MEDSURG 18:19
PROVIDERS: Family Medicine; Admitting Provider Family Medicine; Emergency Provider Family Medicine; PCP Family Medicine; Visit Provider Family Medicine
DX: L03.116 Cellulitis of left lower limb (principal); F41.9 Anxiety disorder, unspecified; Z89.512 Acquired absence of left leg below knee
CPT/HCPCS: 36415; 73721; 80048; 83605; 85025; 86140; 93971; 99284; 99285; A9270; J1650; J3370; J7050; J7120

== ENCOUNTER 2023-10-27 17:45 | Emergency (ER) | payer BC, SELFPAY ==
[2023-10-27 17:52] VITALS: BP 159/88; PULSE 70; RESP 16; TEMP 36.3; O2SAT 95; BMI 28.7
--- NOTE | 2023-10-27 18:32 | ED.GENADULT ---
HPI - General Adult General Time Seen by Provider: 18:32 Date Seen: 10/27/23 Chief complaint: Skin/Abscess/Foreign Body Stated complaint: Needs an IV Drip Time Seen by Provider: 10/27/23 18:30 Source: patient and RN notes reviewed Mode of arrival: ambulatory Limitations: no limitations History of Present Illness HPI narrative: This 63-year-old male is referred by his primary clinic for IV antibiotics for a wound infection of his left [id number] amputation. He has had chronic work current infections. We hospitalized him in March of 2023. He did well in tell reportedly about a week and half ago, the infection was not as bad as it was last fall. Was reportedly on Keflex. He then developed a blister, this was cultured. We were able to look up his wound culture in it showed 4+ Enterococcus faecalis 1+ staff look coccus aureus and 4+ mixed jsoe manuel. There was no beta strep no strep pneumoniae no Pseudomonas. The sensitivities show susceptibility for ampicillin and vancomycin for the Enterococcus. He does not feel the wound is necessarily worsening, no increasing redness. He does note there is still some drainage. He is having no fevers. He has tried to stay off the leg. Related Data Home Medications Medication Instructions Recorded Confirmed sertraline 100 mg tablet 100 mg PO DAILY 12/07/22 03/21/23 sildenafil (pulm.hypertension) 20 40 - 60 mg PO PRN 03/17/23 mg tablet Previous Rx's Medication Instructions Recorded cephalexin 500 mg capsule 500 mg PO TID #21 caps 03/19/23 doxycycline hyclate 100 mg capsule 100 mg PO BID #20 caps 03/19/23 cephalexin 500 mg capsule 500 mg PO TID 8 days #24 caps 03/23/23 Allergies Allergy/AdvReac Type Severity Reaction Status Date / Time No Known Drug Allergies Allergy Verified 10/27/23 17:59 Review of Systems Narrative: As per HPI. [facility], LAT[facility] Medical History Pterygium of both eyes ?H11.003 - Unspecified pterygium of eye, bilateral (ICD-10) Hyperopia of both eyes with astigmatism and presbyopia ?H52.03 - Hypermetropia, bilateral (ICD-10) ?H52.203 - Unspecified astigmatism, bilateral (ICD-10) ?H52.4 - Presbyopia (ICD-10) Anxiety ?F41.9 - Anxiety disorder, unspecified (ICD-10) Postoperative anemia due to acute blood loss (~06/2016) ?D62 - Acute posthemorrhagic anemia (ICD-10) Post-traumatic osteoarthritis of right hip ?M16.51 - Unilateral post-traumatic osteoarthritis, right hip (ICD-10) Gilbert syndrome ?E80.4 - Gilbert syndrome (ICD-10) Hyperbilirubinemia ?E80.6 - Other disorders of bilirubin metabolism (ICD-10) Hyperplastic colon polyp (~10/2010) ?K63.5 - Polyp of colon (ICD-10) Thoracic or lumbosacral neuritis or radiculitis, unspecified Lumbosacral spondylosis without myelopathy ?M47.817 - Spondylosis without myelopathy or radiculopathy, lumbosacral region (ICD-10) Erectile dysfunction ?N52.9 - Male erectile dysfunction, unspecified (ICD-10) Surgical History History of open reduction and internal fixation (ORIF) procedure (~07/17/16) ?Z98.890 - Other specified postprocedural states (ICD-10) Hx of total hip arthroplasty (~06/2016) ?Z96.649 - Presence of unspecified artificial hip joint (ICD-10) History of ankle surgery ?Z98.890 - Other specified postprocedural states (ICD-10) H/O colonoscopy ?Z98.890 - Other specified postprocedural states (ICD-10) Below knee amputation (~08/2012) ?S88.119A - Complete traumatic amputation at level between knee and ankle, unspecified lower leg, initial encounter (ICD-10) Family History Father Prostate cancer, Onset Age: 65 Mother Dementia Paternal Grandfather Diabetes Parkinsonism Social History Narrative: [place] and [place] [employer]. Denies tobacco use. Lifelong nonsmoker. EtOH 2-3 beers per week. Denies recreational drug use. Full Code. What is your current living situation?: I presently have a place to live Problems where you live: no known problems Problems where you live details: n/a In the past 12 months, utilities in danger of being shut off: no In past 12 months, lack of transportation kept you from medical appts, meetings, work, or getting things needed for daily living: no In the past 12 mos, have been you worried that your food would run out before you had money to buy more?: never true In the past 12 mos, the food you bought just didn't last and you didn't have money to buy more?: never true Highest level of school completed/degree received: high school graduate Smoking Status: Never smoker Do you use any of these nicotine containing products: None Second hand tobacco smoke exposure: No How often do you have a drink containing alcohol: 2-3 times a week How many standard drinks containing alcohol do you have on a typical day: 3 or 4 AUDIT-C Alcohol total score: 4 Non-prescribed substance use: denies use Caffeine: No How often does anyone, including family, friends and others, physically hurt you: never How often does anyone, including family, friends and others, insult or talk down to you: never How often does anyone, including family, friends and others, threaten you with harm: never How often does anyone, including family, friends and others, scream or curse at you: never service: No Exam Const: Vital Signs, click to edit/add: Vital Signs - 24 hr 10/27/23 17:52 Temperature 97.3 F L Pulse Rate [Left P ulse Oximeter] 70 Respiratory Rate 16 Blood Pressure [Ri ght Upper Arm] 159/88 H Pulse Oximetry 95 Oxygen Delivery Me thod Room Air This 63-year-old male is alert, interactive, no apparent distress. He has his prosthesis off. There was a bandage over the end of the stump. This was removed. He has a white appearing wet eschar at the end of the stump. There is some mild surrounding pinkish discoloration but the tissue is not warm. I feel no fluctuance. I cannot get any drainage from the wound. This certainly does not seem significantly red in does not feel warm. Lungs are clear, good air entry, wheeze or crackles. CV regular rate and rhythm no murmur. Documenting provider has reviewed patient's vital signs: yes Course Course ED Course: On review of Jonnathan, this is Enterococcus faecalis sensitive to ampicillin and vancomycin, looking at antibiotic tables, he should be able to take Augmentin orally. Will give him a dose of IV Unasyn here. It does not appear that any sensitivities were done on the staff. He will have baseline blood work done. We will give the dose of IV Unasyn, plan to send him out on oral Augmentin. He does not seem septic, no fevers, looks quite well. I do not think he needs hospitalization at this time. Will just make sure his labs are reasonable. He is in agreement with the plan. Reevaluation(s) Time of Reevaluation #1: 20:29 Reevaluation #1: Reviewed labs with patient. He will get his Augmentin out of [facility], will do 875 mg p.o. b.i.d. times 10 days. Vital Signs Vital signs: Initial Vital Signs Temperature 97.3 F L 10/27/23 17:52 Temperature Source Temporal Artery Scan 10/27/23 17:52 Pulse Rate 70 10/27/23 17:52 Respiratory Rate 16 10/27/23 17:52 Blood Pressure 159/88 H 10/27/23 17:52 Blood Pressure Mean 111 H 10/27/23 17:52 Blood Pressure Position Sitting 10/27/23 17:52 Pulse Oximetry 95 10/27/23 17:52 Oxygen Delivery Method Room Air 10/27/23 17:52 Vital Signs Temperature 97.3 F L 10/27/23 17:52 Pulse Rate 70 10/27/23 17:52 Respiratory Rate 16 10/27/23 17:52 Blood Pressure 159/88 H 10/27/23 17:52 Pulse Oximetry 95 10/27/23 17:52 Oxygen Delivery Method Room Air 10/27/23 17:52 Temperature 97.3 F L 10/27/23 17:52 Pulse Rate 70 10/27/23 17:52 Respiratory Rate 16 10/27/23 17:52 Blood Pressure 159/88 H 10/27/23 17:52 Pulse Oximetry 95 10/27/23 17:52 Oxygen Delivery Method Room Air 10/27/23 17:52 Medications Administered Medications: Discontinued Medications Generic Name Dose Route Start Last Admin Trade Name Freq PRN Reason Stop Dose Admin Ampicillin Sodium/Sulbactam 100 mls @ 200 mls/hr 10/27/23 18:58 10/27/23 19:56 Sodium 3 gm/ Sodium Chloride IVPB 10/27/23 18:59 Infused ONCE ONE Infusion Medical Decision Making Lab Data Lab results reviewed: Yes I reviewed the patient's lab results Labs: Lab Results 10/27/23 Range/Units 19:15 WBC 12.36 H (4.50-11.00) K/uL RBC 4.90 (4.30-5.90) m/uL Hgb 15.0 (13.5-17.5) gm/dL Hct 44.8 (37.0-53.0) % MCV 91 (80-100) fL MCH 31 (26-34) pg MCHC 34 (32-36) gm/dL RDW Coeff of Vignesh 12.7 (11.5-15.5) % Plt Count 272 (140-440) K/uL Neut % (Auto) 33.2 L (42.0-72.0) % Lymph % (Auto) 57.8 H (20-44) % Reeves % (Auto) 6.3 (0.0-11.0) % Eos % (Auto) 1.9 (0.0-7.0) % Baso % (Auto) 0.6 (0.0-3.0) % Neut # (Auto) 4.10 (1.7-7.0) K/uL Lymph # (Auto) 7.10 H (0.90-2.90) K/uL Reeves # (Auto) 0.80 (0.00-0.90) K/UL Eos # (Auto) 0.20 (0.00-0.50) K/uL Baso # (Auto) 0.10 (0.00-0.30) K/uL Abs Immat Gran (auto) 0.00 (0.00-0.30) K/uL Imm/Tot Granulo (auto) 0.2 % Sodium 136 (135-149) mmol/L Potassium 3.7 (3.6-5.1) mmol/L Chloride 104 (96-114) mmol/L Carbon Dioxide 27 (20-32) mmol/L Anion Gap 5 L (7-15) mEq/L BUN 22 (7-30) mg/dL Creatinine 0.8 (0.5-1.5) mg/dL Estimated Creat Clear 77.06 Estimated GFR 99 ml/min Glucose 106 (60-115) mg/dL Calcium 9.5 (8.4-10.6) mg/dL C-Reactive Protein < 0.5 L (0.5-1.0) mg/dL Discharge Plan Discharge Clinical Impression: Cellulitis Patient Disposition: Home, Self-Care Condition: Stable Instructions: Cellulitis (ED) Additional Instructions: Stop the Keflex, start Augmentin 875 mg orally twice a day tomorrow morning, complete 10 days. Follow up in clinic within the next week for recheck. Do think you may benefit from wound clinic referral, they do have this at [facility], your primary care provider can put this order in. If the wound is rapidly worsening with opening up, increasing redness, increasing drainage, development of fever, do recommend re-evaluation. Activity Level: Activity as Tolerated Prescriptions: No Action sertraline 100 mg tablet 100 mg PO DAILY sildenafil (pulm.hypertension) 20 mg tablet 40 - 60 mg PO PRN doxycycline hyclate 100 mg capsule 100 mg PO BID Qty: 20 0RF cephalexin 500 mg capsule 500 mg PO TID Qty: 21 0RF cephalexin 500 mg capsule 500 mg PO TID 8 Days Qty: 24 0RF Follow Up/Referrals: Calderon Gan MD [Referring] - Stand Alone Forms: [facility] Info Instructions
[2023-10-27] MEDS: AMPICILLIN/SULBACTAM 3 GM in 0.9 % SODIUM CHLORIDE Mini-bag 100 ML IVPB (19:18)
[2023-10-27 19:26] LABS: Basophils Percent Auto 0.6 % (0.0-3.0); Eosinophils Percent Auto 1.9 % (0.0-7.0); Hematocrit 44.8 % (37.0-53.0); Immature Granulocytes Pct Auto 0.2 %; Lymphocytes Percent Auto 57.8 % (20-44); Mean Corpuscular HGB Conc 34 gm/dL (32-36); Mean Corpuscular Hemoglobin 31 pg (26-34); Mean Corpuscular Volume 91 fL (80-100); Monocytes Percent Auto 6.3 % (0.0-11.0); Neutrophils Percent Auto 33.2 % (42.0-72.0); Platelet Count* 272 K/uL (140-440); RDW Coefficient of Variation % 12.7 % (11.5-15.5); White Blood Count* 12.36 K/uL (4.50-11.00)
[2023-10-27 19:36] LABS: Slide Review Reflex No
[2023-10-27 19:39] LABS: Chloride* 104 mmol/L (96-114); Potassium* 3.7 mmol/L (3.6-5.1); Sodium* 136 mmol/L (135-149)
[2023-10-27 19:42] LABS: Anion Gap 5 mEq/L (7-15); Blood Urea Nitrogen* 22 mg/dL (7-30); Carbon Dioxide* 27 mmol/L (20-32); Creatinine* 0.8 mg/dL (0.5-1.5); Est. Creatinine Clearance* 77.06; Estimated Glomerular Filt Rate 99 ml/min
[2023-10-27 19:43] LABS: Calcium* 9.5 mg/dL (8.4-10.6); Glucose* 106 mg/dL (60-115)
[2023-10-27 19:49] LABS: C Reactive Protein* < 0.5 mg/dL (0.5-1.0)
== END 2023-10-27 20:38 | disposition home or self-care (01) ==
PROVIDERS: Emergency Provider Family Medicine
DX: L03.116 Cellulitis of left lower limb (principal)
CPT/HCPCS: 36415; 80048; 85025; 86140; 96365; 99283; 99284; J0295

== ENCOUNTER 2024-11-05 15:16 | Inpatient (IN) | payer MEDICARE, SELFPAY ==
--- OUTSIDE RECORDS SUMMARY | 2024-11-05 15:19 | XMS_ITS | Clinical Summary ---
Author Organization [employer] [facility] Address [address] [place] [id number] Care Team Providers Care Case Preparer And Liner Name Role Phone Marylu Henry Primary Care Provider Allergies No known active allergies Medications MULTIVITAMIN CAP take one tab daily 0 9 Active naproxen (ALEVE) 220 mg tablet Take 1 tablet by mouth every 12 hours if needed. 0 5 Active sertraline (ZOLOFT) 100 mg tabletIndications :Anxiety Take 1 Tablet (100 mg) by mouth once daily. 90 Tablet 3 5 Active sildenafiL, pulm.hypertension , (Revatio) 20 mg tabletIndications :Impotence of organic origin 2 tab (40mg) up to 5 tab (100mg) 30-90minute s before sex as needed. Do not take daily. 30 Tablet 5 5 Active rosuvastatin 10 mg tabletIndications :Mixed dyslipidemia Take 1 Tablet (10 mg) by mouth at bedtime. 100 Tablet 3 5 Active cephalexin 500 mg capsuleIndication s:Cellulitis of left leg Take 1 Capsule (500 mg) by mouth four times daily for 7 days. 28 Capsule 5 11/10/19 25 Active rosuvastatin (CRESTOR) 10 mg tabletIndications :Chest pain, unspecified type Take 1 Tablet (10 mg) by mouth at bedtime. 30 Tablet 2 08/05/2024 2:02 PM AIRCRAFT MAINTENANCE INSTRUCTOR 5 11/03/19 25 Discontinu ed(Reorder (E-cancel not sent)) benzonatate (TESSALON) 100 mg capsuleIndication s:COVID-19 virus infection Take 1 Capsule (100 mg) by mouth 3 times daily if needed for Cough. 21 Capsule 5 11/03/19 25 Discontinu ed(*Med complete/R egimen complete/L evel of care change) Active Problems Problem Noted Date Diagnosed Date Elevated coronary artery calcium score 5 Syncope and collapse 08/03/2024 Eosinophilic esophagitis 08/25/2023 Overview (08/25/2023): EGD 08/2023 EoE, try omeprazole 40 mg per day Hyperopia of both eyes with astigmatism and pres byopia 09/29/2021 Pterygium of eye, bilateral 09/29/2021 Anxiety 04/03/2018 Overview (03/30/2021): Mar 2018: started on sertraline (Zoloft). Mar 2021: increased sertraline (Zoloft) to 100mg Anticoagulation monitoring, INR range 2-3 2016 Postoperative anemia due to acute blood loss 02/2016 Overview (06/24/2016): Jun 2016: received 2 separate transfusions at [facility] post operative after Hip joint replacement. Post-traumatic osteoarthritis of right hip 07/02 Overview (01/28/2016): June 2015: ultrasound guided interarticular right hip cortisone injection. Aug 27, 2015: ultrasound guided interarticular right hip cortisone injection. November 2015: ultrasound guided interarticular right hip cortisone injection. January 2016: ultrasound guided interarticular right hip cortisone injection. S/P below knee amputation 08/22/2014 Overview (08/22/2014): Left leg 2011, due to prior crush injury and chronic infection. Gilbert syndrome 02/06/2012 Overview (02/06/2012): January 2012: elevated Bilirubin with normal CBC and reticulocyte count. Hyperbilirubinemia 02/03/2012 Overview (02/03/2012): January 2012: total Bilirubin 2.6 and indirect 1.9 so checking CBC and Retic count, if normal then probably Gilbert's. Hyperplastic colon polyp 10/23/2010 Overview (10/23/2010): Colonoscopy 10/2010 polyp repeat in 10 years Lumbosacral spondylosis without myelopathy 06/22 Thoracic or lumbosacral neur itis or radiculitis, unspecified 06/22/2007 ERECTILE DYSFUNCTION - ORGANIC Overview (04/11/2022): Mar 2022: trying cialis. Resolved Problems Problem Noted Date Diagnosed Date Resolved Date Cellulitis and abscess of unspecified site 07/08/2007 06/10/2016 Arthropathy, unspecified, site unspecified 10/07/2005 08/27/2015 Overview (10/07/2005): secondary to posttraumatic/surgurey, left ankle. FRACTURE, CLOSED TIBIA/FIBULA NOS 05/31/2000 10/07/2005 Encounters Date Type Department Care Team Description 11/05/2024 2:10 PM CDT Office Visit [facility] [address] [place] [address] Gerri Melvin, Follow Up; Medication Management; Lump ( lt leg ) 11/05/2024 Travel 11/02/2024 9:55 AM CDT Office Visit [facility] [address] [place] [address] Gerri Melvin, Medication Management (renew medications); Derm Problem (left leg) 11/02/2024 Travel 08/07/2024 2:15 PM AIRCRAFT MAINTENANCE INSTRUCTOR Office Visit [facility] [address] [place] [address] Marylu Henry PA [facility] F/U 08/07/2024 Travel from Last 3 Months Immunizations Immunization Administration Dates Next Due COVID-19 vaccine (Moderna 100mcg/0.5mL) PF, MDV 06/17/2021,11/09/2020,10/12/2020 COVID-19 vaccine (Moderna 50mcg/0.5mL) 12YO+ BIVALENT PF, MDV 04/09/2022 Influenza Virus, Unspecified 05/22/2024,04/17/20 17 Influenza, High-dose Inactivated 05/22/2024 Influenza, IIV3 (Age >=3 years) 07/27/19 13,06/20/2008,05/31/2007,2004 Influenza, IIV4 04/21/2023,,04/03/2018,2015,06/19/2015,06/14/2014 Influenza,CCIIV4 PRESERV FREE 04/27/2022 Td (Age >=7 Years) 10/29/2004 Tdap 12/07/2022,02/01/2012 Zoster (Shingrix-RZV, recombinant) 06/06/2018, Family History Medical History Relation Name Comments Cancer Father Prostate ca. at 65. Dementia Mother Diabetes Paternal Grandfather Parkinsonism Paternal Grandfather Good Health Sister 2 Relation Name Status Comments Child Alive x3 Father Alive Mother Alive Paternal Grandfather Sister 1 Alive Sister 2 Social History Tobacco Use Types Packs/Day Years Used Date Smoking Tobacco: Never Passive Smoke Exposure: Never Smokeless Tobacco: Never Tobacco Cessation:Counseling Given: Not Answered Alcohol Use Standard Drinks/Week Comments Yes 0 (1 standard drink = 0.6 oz pur e alcohol) 2 drinks per week PHQ-2 Answer Date Recorded PHQ-2 TOTAL SCORE 0 11/02/2024 Social Connections Answer Date Recorded Do you often feel lonely or isolated from those around you? 0 08/04/2024 Financial Resource Strain Answer Date R ecorded Difficulty of Paying Living Expenses 3 08/04/2024 Difficulty of Paying Living Expenses Not on file 08/04/2024 Food Insecurity Answer Date Recorded Do you worry your food will run out before you are able to buy more? 1 08/04/2024 Transportation Needs Answer Date Record ed Does lack of transportation keep you from medica l appointments? 1 08/04/2024 Does lack of transportation keep you from work, meetings or getting things that you need? 1 08/04/2024 Housing Stability Answer Date Recorded What is your housing situation today? 1 08/04/2024 Interpersonal Safety Answer Date Record ed Are you being hit, kicked, p ushed or yelled at (see row info)? No 08/03/2024 Interpersonal Safety Abuse 12 - 18 Not on file 08/03/2024 Interpersonal Safety Ambulatory Vulnerability No t on file 08/03/2024 Utilities Answer Date Recorded Do you have trouble paying f or utilities (for example, heat, electricity, water, phone)? 1 08/04/2024 Sex and Gender Information Value Date Recorded Sex Assigned at Not on file Legal Sex Male 5:25 AM AIRCRAFT MAINTENANCE INSTRUCTOR Gender Identity Not on file Sexual Orientation Not on file Occupation Industry Job Start Date Job End Date caal Not on file Not on file Not on file Obstetrics History Last Filed Vital Signs Vital Sign Reading Time Taken Comments Blood Pressure 118/74 11/05/2024 2:10 PM CDT Pulse 77 11/05/2024 2:10 PM CDT Temperature 36.9 C (98.4 F) 11/05/2024 2:10 PM CDT Respiratory Rate 16 11/05/2024 2:10 PM CDT Oxygen Saturation 97% 11/05/2024 2:10 PM CDT Inhaled Oxygen Concentration - - Weight 92.5 kg (204 lb) 11/05/2024 2:10 PM CDT Height 172.7 cm (5' 8) 08/07/2024 2:07 PM AIRCRAFT MAINTENANCE INSTRUCTOR Body Mass Index 31.02 08/07/2024 2:07 PM AIRCRAFT MAINTENANCE INSTRUCTOR Plan of Treatment Health Maintenance Due Date Last Done Comments HIV for age 15-65 1974 Pneumococcal series for age 50+ (1 of 2 - PCV) 1978 RSV vaccine for adults or (1 - Risk 60-74 years 1-dose series) 2019 COVID-19 vaccine series ( season) 2024 04/21/2023, 04/09/2022, 06/17/2021, Additional history exists Medicare Wellness for age 65+ 08/01/2025 07/31/2024 BMI (ht and wt on same day) for age 18+ 08/07/2025 08/07/2024, 07/31/2024, 01/28/2023, Additional history exists Depression screening for age 12+ 11/05/2025 11/05/2024, 11/02/2024, 08/03/2024, Additional history exists Lipids for age 45-75 11/02/2029 11/02/2024, 08/03/2024, 01/28/2023, Additional history exists Tetanus booster 12/07/2032 12/07/2022, 01/15, 10/29/2004 Colonoscopy through age 75 08/23/203308/23, 08/23/2023, 08/23/2023, Additional history exists Hepatitis C screening for ag e 18-79 Completed 08/22/2014 Zoster (shingles) series for age 50+ Completed 06/06/2018, 04/04/2018 Tdap Completed 12/07/2022, 02/01/2012 Influenza Vaccine Completed 05/22/2024, , 04/21/2023, Additional history exists Procedures Procedure Name Priority Date/Time Associated Diagnosis Comments LIPID PANEL W REFLEX MEASURED LDL Routine 11/02/2024 10:34 AM CDT Mixed dyslipidemia ALT (SGPT) Routine 11/02/2024 10:34 AM CDT Mixed dyslipidemia AST (SGOT) Routine 11/02/2024 10:34 AM CDT Mixed dyslipidemia COLONOSCOPY SCREENING Routine 08/23/2023 12:54 PM AIRCRAFT MAINTENANCE INSTRUCTOR Screen for colon cancer ANTI HCV Routine 08/22/2014 10:01 AM AIRCRAFT MAINTENANCE INSTRUCTOR Need for hepatitis C screening test from Last 3 Months or Most Recently Relevant to Health Maintenance Results * LIPID PANEL W REFLEX MEASURED LDL (11/02/2024 10:34 AM CDT) CHOLESTEROL, TOTAL 159 <200 mg/dL [facility] HDL CHOLESTEROL 65 > OR = 40 mg/dL [facility] TRIGLYCERIDES 108 <150 mg/dL [facility] LDL-CHOLESTEROL 75 mg/dL (calc) [facility] Comment: Reference range: <100 Desirable range <100 mg/dL for primary prevention; <70 mg/dL for patients with CHD or diabetic patients with > or = 2 CHD risk factors. LDL-C is now calculated using the Nora calculation, which is a validated novel method providing better accuracy than the Friedewald equation in the estimation of LDL-C. Eric KENT et al. RUDDY. 2013;310(19): 8687-2083 (http://education.[employer]/faq/YGM322) CHOL/HDLC RATIO 2.4 <5.0 (calc) [facility] NON HDL CHOLESTEROL 94 <130 mg/dL (calc) [facility] Comment: For patients with diabetes plus 1 major ASCVD risk factor, treating to a non-HDL-C goal of <100 mg/dL (LDL-C of <70 mg/dL) is considered a therapeutic option. Blood BLOOD SPECIMEN / Unknown 11/02/2024 10:34 AM CDT 11/02/2024 10:35 AM CDT Gerri Melvin DO CHEMISTRY Final Resul t Performing Organization Address City/[facility]/ZIP Co de Phone Number [facility] [address] [address], [place] [phone] [facility] [address] [place] [phone] * ALT (SGPT) (11/02/2024 10:34 AM CDT) ALT 15 9 - 46 U/L [facility] Blood BLOOD SPECIMEN / Unknown 11/02/2024 10:34 AM CDT 11/02/2024 10:35 AM CDT Gerri Melvin DO CHEMISTRY Final Resul t [facility] [address] [place] [address], [place] [phone] [facility] [address] [place] [address] * AST (SGOT) (11/02/2024 10:34 AM CDT) AST 17 10 - 35 U/L [facility] Blood BLOOD SPECIMEN / Unknown 11/02/2024 10:34 AM CDT 11/02/2024 10:35 AM CDT us Gerri Serna Olegario DO CHEMISTRY Final Resul t [facility] [address] [place] [address], [facility] [address] [place] [address] * COLONOSCOPY (08/23/2023 1:15 PM AIRCRAFT MAINTENANCE INSTRUCTOR) 08/23/2023 1:15 PM AIRCRAFT MAINTENANCE INSTRUCTOR Narrative Transcriptions Eric John MD - 08/23/2023 2:36 PM CST Patient Name: Valeriy Harris Procedure Date: 08/23/2023 Gender: Male Date of : 1960 Admit Type: Outpatient Procedure: Colonoscopy Proceduralist: Eric John MD , Aura Farias, WOO(Nurse), Rubi Collins (Nurse) Referring MD: Calderon Moya Indications/Pre-Op Diagnosis: Screening for colorectal malignant neoplasm, Last colonoscopy: October 2010 Medications: Fentanyl 100 micrograms IV, Midazolam 6 mgIV, (medications documented represent totaldosages for multiple procedures) Procedure Description: The patient had risks, benefits and alternatives explained to andgave informed consent. The patient had a stable cardiopulmonary status and judged an adequate candidate for conscious sedation. The endoscope [id number]-[id number] [id number] was passed through the anus andadvanced to the cecum, identified by transillumination. Complications: No immediate complications. Estimated Blood Loss & Specimen: Estimated blood loss: none. Specimen collected - None Findings: The perianal and digital rectal examinations were normal. The entire examined colon appeared normal. Impressions/Post-Op Diagnosis: - The entire examined colon is normal. - No specimens collected. Recommendation: - Patient has a contact number available for emergencies. The signsand symptoms of potential delayed complications were discussed with the patient. Return to normal activities tomorrow. Written discharge instructions were provided to the patient. - Resume previous diet. - Continue present medications. - Repeat colonoscopy in 10 years for screening purposes. Moderate Sedation: A time out was performed before the procedure. Moderate (conscious) sedation was administered by the endoscopy nurse and supervised bythe endoscopist. The following parameters were monitored: oxygensaturation, heart rate, blood pressure, EKG, CO2, respiratory rate, adequacy of pulmonary ventilation and reponse to care. Please refer to the patient's medical record flowsheets and nursing notes for moderate sedation details. Total physician intraservice time was 27 minutes. Eric John MD 08/23/2023 2:36:27 PM This report has been signed electronically. Note Initiated On: 08/23/2023 1:15 PM Procedure Code(s): --- Professional --- 66585, Colonoscopy, flexible; diagnostic, including collection of specimen(s) bybrushing or washing, when performed (separateprocedure) Diagnosis Code(s): --- Professional --- Z12.11, Encounter for screening formalignant neoplasm of colon CPT copyright 2021 [employer]. All rights reserved. The codes documented in this report are preliminary and upon medical billing coder reviewmay be revised to meet current compliance requirements. Scope In: 1:53:26 PM Scope Withdrawal Time 0 hours 8 minutes 10 seconds Scope Out: 2:10:57 PM Eric John MD PROCEDURE ORD Final Res ult * ANTI HCV (08/22/2014 10:01 AM AIRCRAFT MAINTENANCE INSTRUCTOR) HEPATITIS C ANTIBODY Non-Reacti ve Non-Reacti ve 08/22/2014 5:11 PM AIRCRAFT MAINTENANCE INSTRUCTOR [facility] Blood specimen (specimen) BLOOD SPECIMEN / Unknown Venipuncture / Unknown 08/22/2014 10:01 AM AIRCRAFT MAINTENANCE INSTRUCTOR 08/22/2014 10:01 AM AIRCRAFT MAINTENANCE INSTRUCTOR Narrative [facility] - 08/22/2014 5:11 PM AIRCRAFT MAINTENANCE INSTRUCTOR Antibodies to HCV not detected; does not exclude the possibility of exposure to HCV. Calderon Moya MD SEND OUTS Final Res ult [facility] [address] [place] [address], from Last 3 Months or Most Recently Relevant to Health Maintenance Insurance [employer] MED[employer]ARE [employer]VANTAGE MR Advance Directives * Full Code (Latest Code Status on File) Date Activated Date Inactivated Comments 08/03/2024 11:43 PM 08/05/2024 7:00 PM Question Answer Comments Code Status Discussion: Reviewed Preferences * Full Code Date Activated Date Inactivated Comments 08/03/2024 10:59 PM 08/03/2024 11:43 PM Question Answer Comments Code Status Discussion: Unable to Assess Preferences, Provider to review later * Full Code Date Activated Date Inactivated Comments 07/31/2024 3:24 PM 08/03/2024 9:38 PM Care Teams Case Preparer And Liner Relationship Specialty [place] [address] [place] [address] PCP - General Physician [employer] Machine Tender 10/06/23
[2024-11-05 15:24] VITALS: BP 120/73; PULSE 80; RESP 16; TEMP 36.7; O2SAT 98; BMI 33.0
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
--- NOTE | 2024-11-05 15:52 | CRLHL7_ITS ---
For Patients: As a result of the Century Cures Act, medical imaging exams and procedure reports are released immediately into your electronic medical record. You may view this report before your referring provider. If you have questions, please contact your health care provider. INDICATION: Nurse that.redness/swelling, hx of amputation below left knee TECHNIQUE: Ultrasound venous duplex lower left extremity. Compression venous exam was performed using ford-scale, color Doppler, and spectral Doppler analysis. COMPARISON: None. FINDINGS/IMPRESSION: Deep veins: No deep venous thrombus. History of [id number]-[id number] amputation. Superficial veins: Thrombus in the distal thigh the greater saphenous vein. Along the medial aspect of the knee soft tissues there is a complex fluid collection measuring 3.8 x 2.1 x 2.9 cm at area associated redness. Differential considerations include abscess. Consider aspiration. Dictated by Zohaib Ashton MD @ 11/05/2024 5:40:50 PM (Electronically Signed)
[2024-11-05 16:14] LABS: Basophils Percent Auto 0.4 % (0.0-3.0); Hematocrit 41.4 % (37.0-53.0); Hemoglobin* 13.9 gm/dL (13.5-17.5); Immature Granulocytes Pct Auto 0.2 %; Lymphocytes Percent Auto 41.9 % (20-44); Mean Corpuscular HGB Conc 34 gm/dL (32-36); Mean Corpuscular Hemoglobin 31 pg (26-34); Mean Corpuscular Volume 92 fL (80-100); Monocytes Percent Auto 7.1 % (0.0-11.0); Neutrophils Percent Auto 49.4 % (42.0-72.0); Platelet Count* 242 K/uL (140-440); RDW Coefficient of Variation % 12.8 % (11.5-15.5); Red Blood Count 4.51 m/uL (4.30-5.90)
[2024-11-05 16:17] LABS: Slide Review Reflex Yes
--- OUTSIDE RECORDS SUMMARY | 2024-11-05 16:17 | XMS_ITS | Clinical Summary ---
Author Organization [facility] Address [address] [place] [id number] Care Team Providers Care Real Estate Development Manager Name Role Phone Marylu Henry Primary Care [...] bedtime. 30 Tablet 2 08/05/2024 2:02 PM NON CLINICAL ADVISOR 5 11/03/19 25 Discontinu ed(Reorder (E-cancel not [...] Jun 2016: received 2 separate transfusions at [facility] post operative after Hip joint replacement. Post-traumatic [...] Description 11/05/2024 2:10 PM CDT [place] [facility] [place] [address] [place] [address] Gerri Melvin, Follow Up; Medication Management; Lump ( lt leg ) 11/05/2024 Travel 11/02/2024 9:55 AM CDT [place] [facility] [place] [address] [place] [address] Gerri Melvin, Medication Management (renew medications); Derm Problem (left leg) 11/02/2024 Travel 08/07/2024 2:15 PM NON CLINICAL ADVISOR [place] [facility] [place] [address] [place] [address] Marylu Henry [facility] F/U 08/07/2024 Travel [...] on file Legal Sex Male 5:25 AM NON CLINICAL ADVISOR Gender Identity Not on file Sexual Orientation [...] 172.7 cm (5' 8) 08/07/2024 2:07 PM NON CLINICAL ADVISOR Body Mass Index 31.02 08/07/2024 2:07 PM NON CLINICAL ADVISOR Plan of Treatment Health Maintenance Due Date [...] dyslipidemia COLONOSCOPY SCREENING Routine 08/23/2023 12:54 PM NON CLINICAL ADVISOR Screen for colon cancer ANTI HCV Routine 08/22/2014 10:01 AM NON CLINICAL ADVISOR Need for hepatitis C screening test from [...] LDL-C. Eric KENT et al. RUDDY. 2013;310(19): 3529-5829 (http://education.[employer]/faq/NBU297) CHOL/HDLC RATIO 2.4 <5.0 (calc) [facility] [...] CHEMISTRY Final Resul t Performing Organization Address City/[facility]/ZIP Co de Phone Number [facility] [address] [address], [place] [phone] [facility] [address] [place] [phone] * ALT (SGPT) (11/02/2024 10:34 AM CDT) ALT 15 9 - 46 U/L [facility] Blood BLOOD SPECIMEN / Unknown 11/02/2024 10:34 AM CDT 11/02/2024 10:35 AM CDT Gerri Melvin DO CHEMISTRY Final Resul t [facility] [address] [place] [address], [place] [phone] [facility] [address] [place] [address] * AST (SGOT) (11/02/2024 10:34 AM CDT) AST 17 10 - 35 U/L [facility] Blood BLOOD SPECIMEN / Unknown 11/02/2024 10:34 AM CDT 11/02/2024 10:35 AM CDT us Gerri Serna Olegario DO CHEMISTRY Final Resul t [facility] [address] [place] [address], [facility] [address] [place] [address] * COLONOSCOPY (08/23/2023 1:15 PM NON CLINICAL ADVISOR) 08/23/2023 1:15 PM NON CLINICAL ADVISOR Narrative Transcriptions Eric John MD - 08/23/2023 [...] candidate for conscious sedation. The endoscope [id number] was passed through the anus andadvanced to [...] 1:15 PM Procedure Code(s): --- Professional --- 32720, Colonoscopy, flexible; diagnostic, including collection of specimen(s) bybrushing or washing, when performed (separateprocedure) Diagnosis Code(s): --- Professional --- Z12.11, Encounter for screening formalignant neoplasm of colon CPT copyright 2021 [employer]. All rights reserved. The codes documented in this report are preliminary and upon ball points inspector reviewmay be revised to meet current compliance requirements. Scope In: 1:53:26 PM Scope Withdrawal Time 0 hours 8 minutes 10 seconds Scope Out: 2:10:57 PM Eric John MD PROCEDURE ORD Final Res ult * ANTI HCV (08/22/2014 10:01 AM NON CLINICAL ADVISOR) HEPATITIS C ANTIBODY Non-Reacti ve Non-Reacti ve 08/22/2014 5:11 PM NON CLINICAL ADVISOR [facility] Blood specimen (specimen) BLOOD SPECIMEN / Unknown Venipuncture / Unknown 08/22/2014 10:01 AM NON CLINICAL ADVISOR 08/22/2014 10:01 AM NON CLINICAL ADVISOR Narrative [facility] - 08/22/2014 5:11 PM NON CLINICAL ADVISOR Antibodies to HCV not detected; does not exclude the possibility of exposure to HCV. Calderon Moya MD SEND OUTS Final Res ult [facility] [address] [place] [address], from Last 3 Months or Most Recently [...] 3:24 PM 08/03/2024 9:38 PM Care Teams Real Estate Development Manager Relationship Specialty [place] [address] [place] [address] PCP - General Physician Crematorium Operator 10/06/23
[2024-11-05 16:27] LABS: Chloride* 101 mmol/L (96-114)
[2024-11-05 16:28] LABS: Sodium* 135 mmol/L (135-149)
[2024-11-05 16:30] LABS: Blood Urea Nitrogen* 25 mg/dL (7-30); Creatinine* 0.7 mg/dL (0.5-1.5); Est. Creatinine Clearance* 66.46; Estimated Glomerular Filt Rate 102 ml/min
[2024-11-05 16:31] LABS: Anion Gap 8 mEq/L (7-15); Calcium* 9.5 mg/dL (8.4-10.6); Carbon Dioxide* 26 mmol/L (20-32); Glucose* 100 mg/dL (60-115)
[2024-11-05 16:32] LABS: D Dimer Quantitative* 1.95 ug/ml (0.00-0.50)
[2024-11-05 16:59] LABS: C Reactive Protein* 15.3 mg/dL (0.5-1.0)
[2024-11-05 17:08] LABS: Slide Review Acceptable Review (Acceptable)
--- NOTE | 2024-11-05 18:39 | P.IMHP_ITS ---
Assessment and Plan Assessment and plan (1) Cellulitis: Problem comment: - treated with Keflex as an outpatient from 11/02/24-11/05/24 - significantly worsened with + abscess on 11/05 ultrasound, WBC 17 - Vancomycin (11/05) Status: Acute (2) Abscess: Problem comment: - noted on ultrasound 11/05/24 - Orthopedic Surgery consulted and will see patient on 11/06; will keep NPO at midnight for possible OR need Status: Acute (3) Acute superficial venous thrombosis of left lower extremity: Problem comment: - given history of BKA, intermediate risk of developing DVT - discussed risks/benefits of treatment with patient and ; they'd like to treat (45 days of 40mg Lovenox vs 45 days of 10mg Xarelto) with close outpatient f/u - Lovenox initiated 11/05 Status: Acute Plan - per above - updated at bedside, questions answered - requires inpatient status given failed outpatient antibiotic therapy, + abscess, + leukocytosis, new superficial thrombus, high risk for complications given BKA history Hospitalist- H&P: HPI History of Present Illness Date Seen: 11/05/24 Chief complaint: Infection left leg Narrative: Valeriy Harris is a 64 year old male who presented to the ER today at the behest of his PCPs clinic for left lower extremity cellulitis, worsened while on oral antibiotic therapy. History of remote BKA 2/[address] Melvin at the [facility] on 11/02, noted a lump on LLE (not over stump, proximal - medial inner thigh). Started on Keflex at that appointment. Last night, he noted more induration and erythema; today when he woke up, the erythema had extended further caudally and he was seen again in clinic for worsening symptoms, ER evaluation recommended. No fevers, no other skin concerns. Nonsmoker, no DM2. Flew to [place] in September, no recent lengthy car trips. No recent surgeries or trauma. No history of blood clots. ER: - u/s demonstrated a thrombus in greater saphenous vein, in addition to a complex fluid collection (3.8x 2.1x 2.9cm) that could represent an abscess - WBC 17.7, CRP 15.3 - given IV Vancomycin Histories updated below. Dr. Melvin is PCP at [facility]. Review of Systems Status of ROS: Reports: 10 or more systems reviewed and unremarkable except as noted in History and below [facility] Medical History (Updated 11/05/24 @ 20:50 by Tayler Jimenez MD) Hyperlipidemia ?E78.5 - Hyperlipidemia, unspecified (ICD-10) Pterygium of both eyes ?H11.003 - Unspecified pterygium of eye, bilateral (ICD-10) Hyperopia of both eyes with astigmatism and presbyopia ?H52.03 - Hypermetropia, bilateral (ICD-10) ?H52.203 - Unspecified astigmatism, bilateral (ICD-10) ?H52.4 - Presbyopia (ICD-10) Anxiety ?F41.9 - Anxiety disorder, unspecified (ICD-10) Postoperative anemia due to acute blood loss (~06/2016) ?D62 - Acute posthemorrhagic anemia (ICD-10) Post-traumatic osteoarthritis of right hip ?M16.51 - Unilateral post-traumatic osteoarthritis, right hip (ICD-10) Gilbert syndrome ?E80.4 - Gilbert syndrome (ICD-10) Hyperbilirubinemia ?E80.6 - Other disorders of bilirubin metabolism (ICD-10) Hyperplastic colon polyp (~10/2010) ?K63.5 - Polyp of colon (ICD-10) Thoracic or lumbosacral neuritis or radiculitis, unspecified Lumbosacral spondylosis without myelopathy ?M47.817 - Spondylosis without myelopathy or radiculopathy, lumbosacral region (ICD-10) Erectile dysfunction ?N52.9 - Male erectile dysfunction, unspecified (ICD-10) Surgical History History of open reduction and internal fixation (ORIF) procedure (~07/17/16) ?Z98.890 - Other specified postprocedural states (ICD-10) Hx of total hip arthroplasty (~06/2016) ?Z96.649 - Presence of unspecified artificial hip joint (ICD-10) History of ankle surgery ?Z98.890 - Other specified postprocedural states (ICD-10) H/O colonoscopy ?Z98.890 - Other specified postprocedural states (ICD-10) Below knee amputation (~08/2012) ?S88.119A - Complete traumatic amputation at level between knee and ankle, unspecified lower leg, initial encounter (ICD-10) Family History Father Prostate cancer, Onset Age: 65 Mother Dementia Paternal Grandfather Diabetes Parkinsonism Social History (Updated 11/05/24 @ 20:48 by Tayler Jimenez MD) Narrative: [place] and [place]. Lifelong nonsmoker. ETOH 2-3 beers per week. Denies recreational drug use. Sharron would be medical decision maker if needed. Full Code. What is your current living situation?: I presently have a place to live Problems where you live: no known problems Problems where you live details: n/a In the past 12 months, utilities in danger of being shut off: no In past 12 months, lack of transportation kept you from medical appts, meetings, work, or getting things needed for daily living: no In the past 12 mos, have been you worried that your food would run out before you had money to buy more?: never true In the past 12 mos, the food you bought just didn't last and you didn't have money to buy more?: never true Highest level of school completed/degree received: high school graduate Smoking Status: Never smoker Do you use any of these nicotine containing products: None Second hand tobacco smoke exposure: No How often do you have a drink containing alcohol: 2-3 times a week Alcohol type: beer How many standard drinks containing alcohol do you have on a typical day: 3 or 4 How often do you have six or more drinks on one occasion: Never AUDIT-C Alcohol total score: 4 Non-prescribed substance use: denies use Caffeine: No How often does anyone, including family, friends and others, physically hurt you : never How often does anyone, including family, friends and others, insult or talk down to you: never How often does anyone, including family, friends and others, threaten you with harm: never How often does anyone, including family, friends and others, scream or curse at you: never service: No Meds Home Medications and Allergies Home Medications ?Medication ?Instructions ?Recorded ?Confirmed ?Type sertraline 100 mg tablet 100 mg PO DAILY 12/07/22 11/05/24 History sildenafil (pulm.hypertension) 20 40 - 60 mg PO Q24H PRN 03/17/23 11/05/24 History mg tablet rosuvastatin 10 mg tablet 10 mg PO QPM 11/05/24 11/05/24 History Allergies Allergy/AdvReac Type Severity Reaction Status Date / Time No Known Drug Allergies Allergy Verified 11/05/24 15:23 Exam Narrative: Exam Narrative: GEN: Alert and oriented, nontoxic HEENT: EOMIs bilaterally, no scleral icterus CV: RRR, No concerning murmurs R: LCTA bilaterally without concerning wheezing, air movement adequate Ext: L BKA noted, no erythema or skin changes over stump Skin: + large area of erythema of medial L thigh, extending caudally. + area of induration and ttp near distal end of erythema. No open skin wounds, no crepitus Neuro: No focal deficits Psych: Appropriate Const: Vital Signs, click to edit/add: Vital Signs - 24 hr 11/05/24 15:24 Temperature 98.1 F Pulse Rate [Pulse Oximeter] 80 Respiratory Rate 16 Blood Pressure [Ri ght Upper Arm] 120/73 Pulse Oximetry 98 Oxygen Delivery Me thod Room Air Hospitalist - H&P: Result Labs Labs: Short CBC 11/05/24 Range/Units 16:05 WBC 17.70 H (4.50-11.00) K/uL Hgb 13.9 (13.5-17.5) gm/dL Hct 41.4 (37.0-53.0) % Plt Count 242 (140-440) K/uL BMP 11/05/24 16:05 Sodium 135 Potassium 4.0 Chloride 101 Carbon Dioxide 26 BUN 25 Creatinine 0.7 Glucose 100 Calcium 9.5
[2024-11-05 19:01] VITALS: BP 142/83; PULSE 62; RESP 16; TEMP 37; O2SAT 90; BMI 31.7
[2024-11-05] MEDS: VANCOMYCIN 2 GM/400 ML 2 GM/400 ML PIGGYBACK IVPB (19:11)
[2024-11-05] MEDS: ENOXAPARIN 40 MG/0.4 ML INJ SUBCUT (21:46)
[2024-11-05] MEDS: SODIUM CHLORIDE 0.9 % (FLUSH) 10 ML SYRINGE 5 ML IVF (21:47)
[2024-11-05] MEDS: ROSUVASTATIN CALCIUM 10 MG TABLET PO (21:48)
[2024-11-05 23:00] VITALS: BP 140/78; PULSE 65; RESP 18; TEMP 36.8; O2SAT 98
[2024-11-06] VITALS (7 sets, daily range): BP systolic 117–133; BP diastolic 74–84; PULSE 60–70; RESP 16–18; TEMP 36.4–36.8; O2SAT 97–99
[2024-11-06] MEDS: VANCOMYCIN 1.5 GM/300 ML 1.5 GM/300 ML PIGGYBACK IVPB ×2 (06:25→18:05)
[2024-11-06 06:48] LABS: Basophils Percent Auto 0.5 % (0.0-3.0); Eosinophils Percent Auto 2.8 % (0.0-7.0); Hematocrit 40.3 % (37.0-53.0); Hemoglobin* 13.7 gm/dL (13.5-17.5); Immature Granulocytes Pct Auto 0.1 %; Lymphocytes Percent Auto 50.5 % (20-44); Mean Corpuscular HGB Conc 34 gm/dL (32-36); Mean Corpuscular Hemoglobin 31 pg (26-34); Mean Corpuscular Volume 92 fL (80-100); Monocytes Percent Auto 5.7 % (0.0-11.0); Neutrophils Percent Auto 40.4 % (42.0-72.0); Platelet Count* 225 K/uL (140-440); RDW Coefficient of Variation % 12.7 % (11.5-15.5); Red Blood Count 4.38 m/uL (4.30-5.90); White Blood Count* 14.86 K/uL (4.50-11.00)
[2024-11-06 06:51] LABS: Slide Review Reflex No
--- NOTE | 2024-11-06 06:59 | PC.NURSE ---
2400-0470: Pt alert, oriented and vitally stable. Denies pain. NPO at midnight, tolerated well. Up independently, tolerates well. Pt in bed, appears to be resting, call light within reach.
[2024-11-06 07:00] LABS: Chloride* 104 mmol/L (96-114); Potassium* 4.3 mmol/L (3.6-5.1); Sodium* 137 mmol/L (135-149)
[2024-11-06 07:02] LABS: Blood Urea Nitrogen* 22 mg/dL (7-30); Creatinine* 0.7 mg/dL (0.5-1.5); Est. Creatinine Clearance* 68.85; Estimated Glomerular Filt Rate 102 ml/min
[2024-11-06 07:03] LABS: Anion Gap 7 mEq/L (7-15); Calcium* 9.4 mg/dL (8.4-10.6); Carbon Dioxide* 26 mmol/L (20-32); Glucose* 97 mg/dL (60-115)
[2024-11-06 07:20] LABS: C Reactive Protein* 15.3 mg/dL (0.5-1.0)
--- NOTE | 2024-11-06 11:19 | P.IMPN_ITS ---
Assessment and Plan Assessment and plan (1) Cellulitis: Problem comment: - treated with Keflex as an outpatient from 11/02/24-11/05/24 - significantly worsened with + abscess on 11/05 ultrasound, WBC 17 - continue Vancomycin (11/05) 11/06 - erythema and pain improving following initiation of vancomycin Status: Acute (2) Abscess: Problem comment: - noted on ultrasound 11/05/24 - Orthopedic Surgery consulted and will see patient on 11/06; will keep NPO at midnight for possible OR need 11/06 - Dr. Junior, Radiology reviewed US, too small for aspiration. Ortho pending surgical intervention Status: Acute (3) Acute superficial venous thrombosis of left lower extremity: Problem comment: - given history of BKA, intermediate risk of developing DVT - discussed risks/benefits of treatment with patient and ; they'd like to treat (45 days of 40mg Lovenox vs 45 days of 10mg Xarelto) with close outpatient f/u - Lovenox initiated 11/05 - continue during course of hospitalization; will discharge with Xarelto 10 mg daily per patient preference Status: Acute Plan - per above - awaiting Orthopedic surgery intervention Total Time Spent Total Time Spent: Today I spent 45 minutes seeing the patient, reviewing Expanse and EPIC notes/diagnostics, discussing the care plan with our care time that includes social work, PT/OT, pharmacy, RT, [place] [facility] and documenting my impressions and plan in the medical record. Subjective Date Seen: 11/06/24 Interval history: Patient is seen sitting up in a chair. Reports feeling much better and has noticed significant improvement in the redness and pain of his left leg. Still has some tenderness when he puts his prosthetic on otherwise much of the pain prior to hospitalization has significantly improved. Denies headache or dizziness. No chest pain or shortness of breath. Is currently NPO. Remains afebrile, vitally stable. Orthopedic surgery has seen him this morning and will plan for aspiration or surgical intervention. Exam Narrative: Exam Narrative: PHYSICAL EXAM General: Pleasant, conversant, NAD HEENT: Normocephalic, atraumatic, sclera white, EOMI, oral mucosa moist Cardiovascular: RRR, S1S2. No pitting edema Pulmonary: CTA bilaterally without rhonchi, rales, expiratory wheezes. No dyspnea Neurological: Alert, answering questions appropriately, cranial nerves intact, no focal findings Extremities: L BKA, blushing erythema of the mid-distal thigh with induration noted medial distal aspect. Nontender. No streaking. Skin: Warm, dry. Const: Vital Signs, click to edit/add: Vital Signs - 24 hr 11/05/24 15:24 11/05/24 19:01 11/05/24 23:00 Temperature 98.1 F 98.6 F 98.2 F Pulse Rate [Pulse Oximeter] 80 62 65 Respiratory Rate 16 16 18 Blood Pressure [Le ft Arm] 142/83 H 140/78 H Blood Pressure [Ri ght Upper Arm] 120/73 Pulse Oximetry 98 90 98 Oxygen Delivery Me thod Room Air Room Air Room Air 11/05/24 23:00 11/06/24 03:00 11/06/24 07:15 Temperature 97.6 F Pulse Rate [Pulse Oximeter] 65 63 Respiratory Rate 18 18 18 Blood Pressure [Le ft Arm] 117/74 Blood Pressure [Ri ght Upper Arm] Pulse Oximetry 98 Oxygen Delivery Me thod Room Air 11/06/24 07:15 Temperature Pulse Rate [Pulse Oximeter] 63 Respiratory Rate 18 Blood Pressure [Le ft Arm] Blood Pressure [Ri ght Upper Arm] Pulse Oximetry Oxygen Delivery Me thod Labs Labs: Laboratory Results - last 24 hr 11/05/24 11/06/24 16:05 06:18 WBC 17.70 H 14.86 H RBC 4.51 4.38 Hgb 13.9 13.7 Hct 41.4 40.3 MCV 92 92 MCH 31 31 MCHC 34 34 RDW Coeff of Vignesh 12.8 12.7 Plt Count 242 225 Neut % (Auto) 49.4 40.4 L Lymph % (Auto) 41.9 50.5 H Starke % (Auto) 7.1 5.7 Eos % (Auto) 1.0 2.8 Baso % (Auto) 0.4 0.5 Neut # (Auto) 8.70 H 6.00 Lymph # (Auto) 7.40 H 7.50 H Starke # (Auto) 1.30 H 0.80 Eos # (Auto) 0.20 0.40 Baso # (Auto) 0.10 0.10 Abs Immat Gran (auto) 0.00 0.00 Imm/Tot Granulo (auto) 0.2 0.1 Diff Slide Review Acceptable Review D-Dimer Quant (PE/DVT) 1.95 H Sodium 135 137 Potassium 4.0 4.3 Chloride 101 104 Carbon Dioxide 26 26 Anion Gap 8 7 BUN 25 22 Creatinine 0.7 0.7 Estimated Creat Clear 66.46 68.85 Estimated GFR 102 102 Glucose 100 97 Calcium 9.5 9.4 C-Reactive Protein 15.3 H 15.3 H
--- NOTE | 2024-11-06 14:07 | PC.NURSE ---
End of shift. Pt has been very pleasant. Pt alert, oriented x4. He denies pain. he is NPO. he is up ab kenzie. he walking and voiding. call light within reach. waiting for MD to see.
[2024-11-06] MEDS: AMPICILLIN/SULBACTAM 3 GM in 0.9 % SODIUM CHLORIDE Mini-bag 100 ML IVPB ×2 (14:50→20:21)
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
[2024-11-06] MEDS: ENOXAPARIN 40 MG/0.4 ML INJ SUBCUT (20:21)
[2024-11-06] MEDS: SODIUM CHLORIDE 0.9 % (FLUSH) 10 ML SYRINGE 5 ML IVF (20:24)
[2024-11-06] MEDS: ROSUVASTATIN CALCIUM 10 MG TABLET PO (20:33)
[2024-11-07] MEDS: AMPICILLIN/SULBACTAM 3 GM in 0.9 % SODIUM CHLORIDE Mini-bag 100 ML IVPB ×4 (02:34→20:48)
[2024-11-07 03:00] VITALS: BP 111/67; PULSE 60; RESP 14; TEMP 36.6; O2SAT 94
[2024-11-07] MEDS: VANCOMYCIN 1.5 GM/300 ML 1.5 GM/300 ML PIGGYBACK IVPB ×2 (06:08→18:29)
[2024-11-07 06:33] LABS: Basophils Percent Auto 0.5 % (0.0-3.0); Eosinophils Percent Auto 3.2 % (0.0-7.0); Hematocrit 39.8 % (37.0-53.0); Hemoglobin* 13.4 gm/dL (13.5-17.5); Immature Granulocytes Pct Auto 0.1 %; Lymphocytes Percent Auto 53.7 % (20-44); Mean Corpuscular HGB Conc 34 gm/dL (32-36); Mean Corpuscular Hemoglobin 31 pg (26-34); Mean Corpuscular Volume 92 fL (80-100); Monocytes Percent Auto 4.9 % (0.0-11.0); Neutrophils Percent Auto 37.6 % (42.0-72.0); Platelet Count* 247 K/uL (140-440); RDW Coefficient of Variation % 12.7 % (11.5-15.5); Red Blood Count 4.33 m/uL (4.30-5.90); White Blood Count* 11.41 K/uL (4.50-11.00)
[2024-11-07 06:34] LABS: Slide Review Reflex No
[2024-11-07 06:40] VITALS: BP 127/75; PULSE 58; RESP 12; TEMP 36.8; O2SAT 95
[2024-11-07 06:46] LABS: Chloride* 105 mmol/L (96-114); Potassium* 4.2 mmol/L (3.6-5.1); Sodium* 138 mmol/L (135-149)
[2024-11-07 06:50] LABS: Anion Gap 7 mEq/L (7-15); Blood Urea Nitrogen* 22 mg/dL (7-30); Calcium* 9.3 mg/dL (8.4-10.6); Carbon Dioxide* 26 mmol/L (20-32); Creatinine* 0.7 mg/dL (0.5-1.5); Est. Creatinine Clearance* 68.85; Estimated Glomerular Filt Rate 102 ml/min; Glucose* 101 mg/dL (60-115)
--- NOTE | 2024-11-07 06:52 | PC.NURSE ---
End of shift report: VS WNL. Afebrile. Denies pain. Sailboat Captain noted the warm, light red cellulitis was outside the previous skin outline. Sailboat Captain reoutlined the area on the L leg, CMS remains intact. Sailboat Captain Ambulates ind in room. Took a shower this shift. Tolerating reg diet. Call light within reach.?
[2024-11-07 06:53] LABS: C Reactive Protein* 8.2 mg/dL (0.5-1.0)
--- NOTE | 2024-11-07 07:10 | CRLHL7_ITS ---
For Patients: As a result of the Century Cures Act, medical imaging exams and procedure reports are released immediately into your electronic medical record. You may view this report before your referring provider. If you have questions, please contact your health care provider. Indication: Cellulitis left medial distal thigh. Technique: MRI of the left femur without contrast. Sequences include axial proton density, T1 and coronal T1, T2, stir and sagittal STIR images. Comparison: Left lower extremity ultrasound from November 05, 2024 and MRI of the left knee from March 22, 2023. Findings: The femur shows no definite abnormal marrow signal with intact cortex. The included left knee joint is intact. Increased T2 signal within the left distal sartorius and vastus medialis indicative of myositis. Mild fluid is noted within the myofascial planes. The neurovascular bundles are intact. Significant soft tissue swelling is noted along the posterior medial aspect of the distal thigh, knee and proximal calf. Focal lobulated fluid collection at the posteromedial aspect of the knee measuring approximately 2.1 x 1.3 x 2.5 centimeters. Thick wall is noted surrounding the fluid collection. Limited evaluation in the absence of contrast. There is overlying subcutaneous edema as well as cutaneous thickening along the distal posterior medial thigh, knee and proximal calf. Impression: 1. Cellulitis along the posterior medial distal thigh, knee and proximal calf. 2. Focal fluid collection measuring up to 2.5 centimeter with thick wall at the level of the posterior medial knee suspicious for abscess. Limited evaluation in the absence of IV contrast. Consider aspiration. 3. Myositis involving the left distal sartorius and vastus medialis muscles. Dictated by Joe Boogie MD @ 11/07/2024 1:06:02 PM (Electronically Signed)
[2024-11-07] MEDS: SERTRALINE 100 MG TABLET PO (08:58)
[2024-11-07] MEDS: SODIUM CHLORIDE 0.9 % (FLUSH) 10 ML SYRINGE 5 ML IVF (08:59)
[2024-11-07 11:02] VITALS: BP 122/70; PULSE 56; RESP 14; TEMP 36.6; O2SAT 96
--- NOTE | 2024-11-07 11:32 | PM.IMPN1 ---
Assessment and Plan Assessment and plan (1) Cellulitis: Problem comment: - treated with Keflex as an outpatient from 11/02/24-11/05/24 - significantly worsened with + abscess on 11/05 ultrasound, WBC 17 - continue Vancomycin (11/05) 11/06 - erythema and pain improving following initiation of vancomycin 11/07 - erythema worsened yesterday afternoon. No fevers. Pain unchanged. Unasyn added to vancomycin given that he is a caal. WBC and CRP downtrending. Awaiting MRI results, further plan of care per Orthopedic surgery Status: Acute (2) Abscess: Problem comment: - noted on ultrasound 11/05/24 - Orthopedic Surgery consulted and will see patient on 11/06; will keep NPO at midnight for possible OR need 11/06 - Dr. Junior, Radiology reviewed US, too small for aspiration. Ortho pending surgical intervention 11/07 - Ortho team attempted aspiration yesterday, aspirating only blood without purulence. Awaiting MRI today Status: Acute (3) Acute superficial venous thrombosis of left lower extremity: Problem comment: - given history of BKA, intermediate risk of developing DVT - discussed risks/benefits of treatment with patient and ; they'd like to treat (45 days of 40mg Lovenox vs 45 days of 10mg Xarelto) with close outpatient f/u - Lovenox initiated 11/05 - continue during course of hospitalization; will discharge with Xarelto 10 mg daily per patient preference Status: Acute Plan - per above - awaiting Orthopedic surgery intervention Total Time Spent Total Time Spent: Today I spent 45 minutes seeing the patient, reviewing Expanse and EPIC notes/diagnostics, discussing the care plan with our care time that includes social work, PT/OT, pharmacy, RT, half-way and documenting my impressions and plan in the medical record. Subjective Date Seen: 11/07/24 Interval history: Patient is seen lying in bed this morning. Reports feeling pretty good. Yesterday afternoon it was noted that the erythema of his left thigh had worsened and spread beyond the skin markings. Today the erythema has lessened but is still noted be on the skin markings. He reports pain is well managed. A firm induration is still noted at the distal medial thigh. He remains afebrile. WBC and CRP are down trending. Orthopedics is seeing him again this morning and have recommended an MRI to determine further course of care. Exam Narrative: Exam Narrative: PHYSICAL EXAM General: Pleasant, conversant, NAD HEENT: Normocephalic, atraumatic, sclera white, EOMI, oral mucosa moist Cardiovascular: RRR, S1S2. No pitting edema Pulmonary: CTA bilaterally without rhonchi, rales, expiratory wheezes. No dyspnea Neurological: Alert, answering questions appropriately, cranial nerves intact, no focal findings Extremities: L BKA, increased erythema of the mid-distal thigh with induration noted medial distal aspect. Nontender. No streaking. Skin: Warm, dry. Const: Vital Signs, click to edit/add: Vital Signs - 24 hr 11/06/24 15:00 11/06/24 15:00 11/06/24 19:00 Temperature 97.5 F L 98 F Pulse Rate [Pulse Oximeter] 67 67 60 Respiratory Rate 16 16 16 Blood Pressure [Le ft Arm] 133/84 132/82 Blood Pressure [Ri ght Arm] Pulse Oximetry 97 97 Oxygen Delivery Me thod Room Air Room Air 11/06/24 20:11 11/06/24 21:57 11/07/24 03:00 Temperature 97.6 F 97.8 F Pulse Rate [Pulse Oximeter] 60 61 60 Respiratory Rate 16 16 14 Blood Pressure [Le ft Arm] 128/76 111/67 Blood Pressure [Ri ght Arm] Pulse Oximetry 97 94 Oxygen Delivery Me thod Room Air Room Air 11/07/24 06:40 11/07/24 06:40 11/07/24 11:02 Temperature 98.2 F 97.9 F Pulse Rate [Pulse Oximeter] 58 L 58 L 56 L Respiratory Rate 12 12 14 Blood Pressure [Le ft Arm] Blood Pressure [Ri ght Arm] 127/75 122/70 Pulse Oximetry 95 96 Oxygen Delivery Me thod Room Air Room Air Labs Labs: Laboratory Results - last 24 hr 11/07/24 06:10 WBC 11.41 H RBC 4.33 Hgb 13.4 L Hct 39.8 MCV 92 MCH 31 MCHC 34 RDW Coeff of Vignesh 12.7 Plt Count 247 Neut % (Auto) 37.6 L Lymph % (Auto) 53.7 H [place] % (Auto) 4.9 Eos % (Auto) 3.2 Baso % (Auto) 0.5 Neut # (Auto) 4.30 Lymph # (Auto) 6.10 H [place] # (Auto) 0.60 Eos # (Auto) 0.40 Baso # (Auto) 0.10 Abs Immat Gran (auto) 0.00 Imm/Tot Granulo (auto) 0.1 Sodium 138 Potassium 4.2 Chloride 105 Carbon Dioxide 26 Anion Gap 7 BUN 22 Creatinine 0.7 Estimated Creat Clear 68.85 Estimated GFR 102 Glucose 101 Calcium 9.3 C-Reactive Protein 8.2 H
[2024-11-07] MEDS: 0.9 % SODIUM CHLORIDE 250 ml IV (14:04)
--- NOTE | 2024-11-07 14:16 | PC.NURSE ---
End of Shift: Patient pleasant and cooperative. Patient vitally stable, lungs clear, BS WNL, IV SL and intact. Patient independent in room and denies pain. Left thigh warm to touch and reddened within outline. Patient tolerating regular diet, urinating well, no BM this shift.
[2024-11-07 15:00] VITALS: BP 123/81; PULSE 69; RESP 18; TEMP 36.8; O2SAT 95
[2024-11-07 19:14] VITALS: BP 115/84; PULSE 60; RESP 16; TEMP 36.5; O2SAT 100
--- NOTE | 2024-11-07 19:23 | PC.NURSE ---
End of shift - RN took over pt care at approximately 1500. Up independently in room and in halls. Denies pain, n/v, SOB. Tolerating RA and regular diet/fluids, VSS. Appears to be resting comfortably in chair at end of shift with call light within reach.
[2024-11-07] MEDS: ROSUVASTATIN CALCIUM 10 MG TABLET PO (20:48)
[2024-11-07 20:53] VITALS: BP 125/73; PULSE 56; RESP 16; TEMP 36.7; O2SAT 100
[2024-11-08] VITALS (20 sets, daily range): BP systolic 113–157; BP diastolic 65–96; PULSE 53–65; RESP 12–20; TEMP 36–36.6; O2SAT 92–96
[2024-11-08] MEDS: AMPICILLIN/SULBACTAM 3 GM in 0.9 % SODIUM CHLORIDE Mini-bag 100 ML IVPB ×2 (02:53→09:37)
[2024-11-08] MEDS: VANCOMYCIN 1.5 GM/300 ML 1.5 GM/300 ML PIGGYBACK IVPB (05:48)
[2024-11-08 06:19] LABS: Hemoglobin* 13.2 gm/dL (13.5-17.5); Mean Corpuscular HGB Conc 34 gm/dL (32-36); Mean Corpuscular Hemoglobin 31 pg (26-34); Mean Corpuscular Volume 92 fL (80-100); Platelet Count* 240 K/uL (140-440); Red Blood Count 4.26 m/uL (4.30-5.90); White Blood Count* 10.95 K/uL (4.50-11.00)
[2024-11-08 06:21] LABS: Slide Review Reflex No
[2024-11-08 06:31] LABS: Chloride* 106 mmol/L (96-114)
[2024-11-08 06:32] LABS: Potassium* 4.5 mmol/L (3.6-5.1); Sodium* 136 mmol/L (135-149)
[2024-11-08 06:34] LABS: Blood Urea Nitrogen* 21 mg/dL (7-30); Creatinine* 0.7 mg/dL (0.5-1.5)
[2024-11-08 06:35] LABS: Anion Gap 4 mEq/L (7-15); Calcium* 9.1 mg/dL (8.4-10.6); Carbon Dioxide* 26 mmol/L (20-32); Est. Creatinine Clearance* 68.85; Estimated Glomerular Filt Rate 102 ml/min; Glucose* 103 mg/dL (60-115)
--- NOTE | 2024-11-08 06:59 | PC.NURSE ---
[id number]: Pt alert, oriented and vitally stable. Redness reduced throughout shift on left extremity. Denies pain. NPO. IV infiltrated, replaced in left wrist. Independent with moving. Pt in bed, appears to be resting, call light within reach.
--- NOTE | 2024-11-08 07:14 | W.PM.H&PU ---
History & Physical Update History & Physical Update H&P Updates: Erythema to proximal thigh & local induration persists. No systemic symptoms or signs still. MRI shows suspicion of abscess posteromedial thigh.
[2024-11-08] MEDS: LACTATED RINGERS 1000 ML 1,000 ML 125 ML IV (07:51)
[2024-11-08] MEDS: 0.9 % SODIUM CHLORIDE 250 ml IV (07:51)
--- NOTE | 2024-11-08 07:59 | PM.ORPRC ---
Procedure Note Date of procedure: 11/08/24 Procedure: PREOPERATIVE DIAGNOSIS: 1. Left posteromedial distal thigh superficial abscess 2. Left below-knee amputation, remote POSTOPERATIVE DIAGNOSIS: 1. Left posteromedial distal thigh superficial abscess 2. Left below-knee amputation, remote PROCEDURE: 1. Left posteromedial incision and drainage of superficial abscess distal (induration region measured 7 x 5 x 2 cm) SURGEON: Juan Gallardo MD. UNIFORM FORCE CAPTAIN: AMBERLY Crespo - Of note, an printer floor covering assistant was critical for this case to aid in patient positioning, tissue retraction, limb manipulation/positioning, patient safety, & closure. ANESTHESIA: General LMA EBL: 25 IMPLANTS: None TOURNIQUET: 10 minutes esmarch wrap SPECIMENS: Culture swabs (x3) including anterior, posterior, and distal COMPLICATIONS: None evident INDICATIONS: The patient is a pleasant 64-year-old female who has experienced left posteromedial distal thigh induration, erythema, and pain that has progressively gotten worse prompted a visit to [facility]. He has been admitted to the hospital receiving IV antibiotics for the last 3 days. Nonoperative management has been tried but unsuccessful. Given the failure of nonoperative management, surgery was recommended. DESCRIPTION OF PROCEDURE: Following a thorough discussion of risks, benefits, and alternatives consent was obtained and the operative extremity was marked. The patient was brought to the operating room and placed supine on the operating table. No antibiotics were administered as this was planned to be a local case only. Proper time-out was performed identifying proper patient, site, and procedure. The operative extremity was prepped and draped in the appropriate sterile fashion using ChloraPrep. The limb was exsanguinated and the Esmarch wrap utilized as a tourniquet. A longitudinal incision was made overlying the indurated region over the posteromedial distal left thigh. Sharp incision through skin and blunt dissection through subcutaneous tissue did not clearly identify any fluctuant pocket initially. We were immediately overlying the indurated region. Further dissection with the Metzenbaum scissors bluntly both anteriorly, posteriorly, and distally eventually identified a small fluid pocket in the distal extent. This looked a bit more serous rather than purulent. However, we were able to take 3 separate cultures (anterior, posterior, and distal). A thorough irrigation normal saline was performed of the small region including 2 L of normal saline. Curette was utilized in between the separate L saline irrigation/lavage. Much of the dissection remained in the subcutaneous layer, but we did end up penetrating into the medial musculature of the thigh given the myositis seen on MRI, without any clear serous or purulent fluid pockets. At this stage, the Esmarch wrap tourniquet was removed, hemostasis achieved, and closure performed with 4-O nylon. Soft dressings were applied, and the patient was awoken/transferred to the recovery room in stable condition. PLAN: 1. Encourage elevation of the operative extremity. 2. Range of motion of the operative extremity/digits as tolerated. 3. Ibuprofen, acetaminophen and/or oxycodone as needed for pain. 4. May discharge from hospital when the hospitalist team feels like he is medically stable and oral antibiotic is chosen. Follow-up PA visit in 10-14 days for wound check and suture removal. 5. Refrain from utilizing prosthesis on this left below-knee amputated limb until follow-up.
--- NOTE | 2024-11-08 08:22 | P.ANES_ITS ---
Anesthesia Charges Start Date/Time Anesthesia Start Date: 11/08/24 Anesthesia Start Time: 07:18 Stop Date/Time Anesthesia Stop Date: 11/08/24 Anesthesia Stop Time: 08:19 Coding CPT Codes CPT Codes: ANESTH KNEE AREA SURGERY - 86297 ([id number]) P2 - PATIENT W/MILD SYST DISEASE, QK - RADIO INTERFERENCE EXPERT 2-4 CNCRNT ANES PROC, QX - SAMPLE PULLER SVC W/ MD MED DIRECTION
--- NOTE | 2024-11-08 08:22 | W.ANESCHARGE ---
Anesthesia Charges Start Date/Time Anesthesia Start Date: 11/08/24 Anesthesia Start Time: 07:18 Stop Date/Time Anesthesia Stop Date: 11/08/24 Anesthesia Stop Time: 08:19 Coding CPT Codes CPT Codes: ANESTH KNEE AREA SURGERY - 52162 ([id number]) P2 - PATIENT W/MILD SYST DISEASE, QK - AIR CARGO SPECIALIST SUPERVISOR 2-4 CNCRNT ANES PROC, QX - SCHOOL LIBRARIAN SVC W/ MD MED DIRECTION
--- NOTE | 2024-11-08 08:43 | SUR.PHASEI ---
Patient arrived to the PACU awake and comfortable, no complaints of nausea. Asking questions about what they found, when can he shower and go home. Appropriate conversation.
[2024-11-08] MEDS: fentaNYL 100 MCG/2 ML inj 50 MCG IVP (08:50)
--- NOTE | 2024-11-08 09:06 | SUR.PHASEI ---
Patient meets discharge criteria from PACU
[2024-11-08] MEDS: SERTRALINE 100 MG TABLET PO (09:37)
--- NOTE | 2024-11-08 09:44 | REH.PT ---
Pt was seen by PT to borrow Axillary crutches for length of stay. Pt is familiar with use of crutches from prior experience and PT assisted with crutch fitting. Pt understands weightbearing precautions. Pt demonstrated IND bed mobility, transfers, and mod I gait with crutches. Pt reports living in a single level home with no TINY. No further skilled PT is needed at this time.
--- NOTE | 2024-11-08 10:13 | PM.DS1 ---
DS: Providers Provider Date Seen: 11/08/24 Date of admission: 11/05/24 19:43 Primary care physician: Gerri Melvin DO Admitting Clinician: Tayler Jimenez MD Consults: Orthopedic Surgery - Juan Gallardo MD, Edis Gonzalez MD, Millicent SINGH, Alice Bah PAC Attending Physician on discharge: Kenya Faulkner, [facility], [facility] [place] [facility]ist Date of Discharge: 11/08/24 DS: Diagnosis Discharge Diagnosis (1) Cellulitis: Status: Acute Problem details: - treated with Keflex as an outpatient from 11/02/24-11/05/24 - significantly worsened with + abscess on 11/05 ultrasound, WBC 17 - continue Vancomycin (11/05) 11/06 - erythema and pain improving following initiation of vancomycin 11/07 - erythema worsened yesterday afternoon. No fevers. Pain unchanged. Unasyn added to vancomycin given that he is a caal. WBC and CRP downtrending. Awaiting MRI results, further plan of care per Orthopedic surgery Significant improvement in erythema, leukocytosis resolved while on vancomycin and Unasyn. Blood culture negative. Is discharged home on Augmentin. Cultures from surgical procedure pending on day of discharge. (2) Abscess: Status: Acute Problem details: - noted on ultrasound 11/05/24 - Orthopedic Surgery consulted and will see patient on 11/06; will keep NPO at midnight for possible OR need 11/06 - Dr. Junior, Radiology reviewed US, too small for aspiration. Ortho pending surgical intervention 11/07 - Ortho team attempted aspiration yesterday, aspirating only blood without purulence. Awaiting MRI today On day of discharge, patient underwent Left posteromedial incision and drainage of superficial abscess distal (induration region measured 7 x 5 x 2 cm) with Dr. Gallardo. Cultures were obtained and pending prior to discharge. Patient has been instructed not to use his prosthesis until follow-up in the orthopedic clinic in 10-14 days. Sutures will be removed during this visit. Continue Augmentin. Postoperative wound care instructions provided by surgery. (3) Acute superficial venous thrombosis of left lower extremity: Status: Acute Problem details: - given history of BKA, intermediate risk of developing DVT - discussed risks/benefits of treatment with patient and ; they'd like to treat (45 days of 40mg Lovenox vs 45 days of 10mg Xarelto) with close outpatient f/u - Lovenox initiated 11/05 - continue during course of hospitalization; will discharge with Xarelto 10 mg daily per patient preference Patient is discharged on Xarelto 10 mg daily for total of 45 days. Outpatient follow-up with PCP for ongoing management. DS: Summary Hospital Course Hospital Course: Course of care and details as noted above. Continue Augmentin. Outpatient follow-up in orthopedic clinic 10-14 days. Avoid use of prosthesis until this time. Remainder of chronic medical comorbidities were monitored and managed with home medications. Status at Discharge Functional status at discharge: uses cane/walker (Crutches) Overall status at discharge: patient is progressing back to baseline Time Spent with Patient Time attestation: Total time spent providing and/or coordinating discharge services: Time spent: Greater than 30 minutes Exam Narrative: Exam Narrative: PHYSICAL EXAM General: Pleasant, conversant, NAD Cardiovascular: RRR Pulmonary: No dyspnea Neurological: Alert, answering questions appropriately Extremity: Postoperative dressing in place LLE, dry, no surrounding erythema Skin: Warm, dry. Const: Vital Signs, click to edit/add: Vital Signs - 24 hr 11/07/24 11:02 11/07/24 15:00 11/07/24 19:14 Temperature 97.9 F 98.3 F 97.7 F Pulse Rate Pulse Rate [Pulse Oximeter] 56 L 69 60 Respiratory Rate 14 18 16 Blood Pressure Blood Pressure [Ri ght Arm] 122/70 123/81 115/84 Pulse Oximetry 96 95 100 Oxygen Delivery Me thod Room Air Room Air Room Air 11/07/24 20:53 11/07/24 20:53 11/08/24 02:52 Temperature 98.0 F 97.8 F Pulse Rate Pulse Rate [Pulse Oximeter] 56 L 56 L 55 L Respiratory Rate 16 14 Blood Pressure Blood Pressure [Ri ght Arm] 125/73 113/65 Pulse Oximetry 100 96 Oxygen Delivery Me thod Room Air 11/08/24 08:15 11/08/24 08:20 11/08/24 08:25 Temperature 97.0 F L Pulse Rate 65 61 59 L Pulse Rate [Pulse Oximeter] Respiratory Rate 20 20 17 Blood Pressure 157/96 H 146/88 H 145/91 H Blood Pressure [Ri ght Arm] Pulse Oximetry 96 94 95 Oxygen Delivery Me thod Room Air Room Air Room Air 11/08/24 08:30 11/08/24 08:35 11/08/24 08:40 Temperature Pulse Rate 60 59 L 55 L Pulse Rate [Pulse Oximeter] Respiratory Rate 16 16 12 Blood Pressure 136/88 140/82 H 137/82 Blood Pressure [Ri ght Arm] Pulse Oximetry 94 95 94 Oxygen Delivery Sd thod Room Air Room Air Room Air 11/08/24 08:45 11/08/24 08:50 11/08/24 08:55 Temperature 97.3 F L Pulse Rate 54 L 53 L 59 L Pulse Rate [Pulse Oximeter] Respiratory Rate 16 14 14 Blood Pressure 139/81 137/82 129/81 Blood Pressure [Ri ght Arm] Pulse Oximetry 94 95 92 Oxygen Delivery Sd thod Room Air 11/08/24 09:00 Temperature Pulse Rate 60 Pulse Rate [Pulse Oximeter] Respiratory Rate 14 Blood Pressure 131/82 Blood Pressure [Ri ght Arm] Pulse Oximetry 93 Oxygen Delivery Sd thod Room Air DS: Data Data Completed and Pending Pending studies at discharge: Aerobic/anaerobic cultures and Gram stain of wound Labs on day of discharge: Labs from last 24 hours 11/08/24 06:09 WBC 10.95 RBC 4.26 L Hgb 13.2 L Hct 39.0 MCV 92 MCH 31 MCHC 34 Plt Count 240 Sodium 136 Potassium 4.5 Chloride 106 Carbon Dioxide 26 Anion Gap 4 L BUN 21 Creatinine 0.7 Estimated Creat Clear 68.85 Estimated GFR 102 Glucose 103 Calcium 9.1 Preliminary micro results at discharge 11/08/24 08:00 Aerobic Culture - Preliminary Knee,Left Culture in Progress Anaerobic Culture - Preliminary Culture in Progress 11/08/24 07:58 Aerobic Culture - Preliminary Knee,Left Culture in Progress Anaerobic Culture - Preliminary Culture in Progress 11/08/24 07:39 Aerobic Culture - Preliminary Knee,Left Culture in Progress Anaerobic Culture - Preliminary Culture in Progress 11/06/24 06:18 Blood Culture - Preliminary Blood NO GROWTH AFTER 48 HOURS Imaging Femur MRI: Attestation: I have reviewed the pertinent imaging results. Radiologist's impression: The femur shows no definite abnormal marrow signal with intact cortex. The included left knee joint is intact. Increased T2 signal within the left distal sartorius and vastus medialis indicative of myositis. Mild fluid is noted within the myofascial planes. The neurovascular bundles are intact. Significant soft tissue swelling is noted along the posterior medial aspect of the distal thigh, knee and proximal calf. Focal lobulated fluid collection at the posteromedial aspect of the knee measuring approximately 2.1 x 1.3 x 2.5 centimeters. Thick wall is noted surrounding the fluid collection. Limited evaluation in the absence of contrast. There is overlying subcutaneous edema as well as cutaneous thickening along the distal posterior medial thigh, knee and proximal calf. Impression: 1. Cellulitis along the posterior medial distal thigh, knee and proximal calf. 2. Focal fluid collection measuring up to 2.5 centimeter with thick wall at the level of the posterior medial knee suspicious for abscess. Limited evaluation in the absence of IV contrast. Consider aspiration. 3. Myositis involving the left distal sartorius and vastus medialis muscles. Venous duplex: Attestation: I have reviewed the pertinent imaging results. Radiologist's impression: Deep veins: No deep venous thrombus. History of [id number] amputation. Superficial veins: Thrombus in the distal thigh the greater saphenous vein. Along the medial aspect of the knee soft tissues there is a complex fluid collection measuring 3.8 x 2.1 x 2.9 cm at area associated redness. Differential considerations include abscess. Consider aspiration. Discharge Plan Discharge Disposition: Home, Self-Care Date of Admission: 11/05/24 19:43 Attending Provider on Discharge: Kenya Faulkner Primary Care Provider: Provider,Not a Local Condition: Improved Anticipated Discharge Date/Time: 11/08/24 09:56 Discharge Medications: New oxycodone 5 mg Tablet 5 mg PO Q4H PRN (Reason: Pain) Qty: 20 0RF amoxicillin-pot clavulanate 875-125 mg tablet 1 tab PO BID 11 Days Qty: 22 0RF Xarelto 10 mg tablet 10 mg PO DAILY Qty: 42 0RF Rx Instructions: to complete 45 days of treatment Continued rosuvastatin 10 mg tablet 10 mg PO QPM sertraline 100 mg tablet 100 mg PO DAILY sildenafil (pulm.hypertension) 20 mg tablet 40 - 60 mg PO Q24H PRN Discontinued cephalexin 500 mg capsule 500 mg PO TID 8 Days Qty: 24 0RF Discharge Orders: Discharge Order (Routine); Ordered 11/08/24 Ordered By: Kenya Faulkner Patient Education: Deep Sedation (DC), Incision and Drainage (DC) Additional Instructions: Finish course of antibiotics as prescribed (take with food and some type of daily probiotic for good bacteria - yogurt, sauerkraut, kombucha). 45 days total of blood thinner (Xarelto); no Ibuprofen while on this (increased risk of bleeding). This is for your SUPERFICIAL thrombus of your greater saphenous vein. Dr. Melvin can re-ultrasound this area when you're done with the blood thinner to reassess for a clot. Post operative instructions: Do not wear your prosthesis. You will see Orthopedic Surgery in the clinic for further instructions. Your nylon sutures will be removed during the Ortho clinic visit. JENNY-C appt with ORTHo in 10-14days. staff to make appt for Valeriy prior to dc Activity Level: Other Activity Detail: Do not wear your prosthesis until follow up with Orthopedic Surgery. Use crutches. Discharge Diet: Regular Follow Up Appointments: Orthopedics, [facility] [Provider Group] (Post surgical follow up 10-14 days) Provider,Not a Local [Primary Care Provider] - Gerri Melvin DO [Referring] - (hospital f/u 7-10 days) Forms: My[facility] Info Instructions
[2024-11-08] MEDS: ACETAMINOPHEN 325 MG TABLET 975 MG PO (10:47)
[2024-11-08] MEDS: ENOXAPARIN 40 MG/0.4 ML INJ SUBCUT (11:57)
--- NOTE | 2024-11-08 12:04 | P.ANES_ITS ---
Anesthesia Charges Start Date/Time Anesthesia Start Date: 11/08/24 Anesthesia Start Time: 07:18 Stop Date/Time Anesthesia Stop Date: 11/08/24 Anesthesia Stop Time: 08:19 Coding CPT Codes CPT Codes: ANESTH KNEE AREA SURGERY - 37380 ([id number]) QK - HAIR CLIPPER POWER 2-4 CNCRNT ANES PROC, QX - ROD BUSTER SVC W/ MD MED DIRECTION, P2 - PATIENT W/MILD SYST DISEASE
--- NOTE | 2024-11-08 12:04 | W.ANESCHARGE ---
Anesthesia Charges Start Date/Time Anesthesia Start Date: 11/08/24 Anesthesia Start Time: 07:18 Stop Date/Time Anesthesia Stop Date: 11/08/24 Anesthesia Stop Time: 08:19 Coding CPT Codes CPT Codes: ANESTH KNEE AREA SURGERY - 07955 ([id number]) QK - GEAR GRINDING MACHINE OPERATOR 2-4 CNCRNT ANES PROC, QX - CASING FLUID TENDER SVC W/ MD MED DIRECTION, P2 - PATIENT W/MILD SYST DISEASE
--- NOTE | 2024-11-08 12:53 | PC.NURSE ---
Discharge: Patient pleasant and cooperative. Patient vitally stable, lungs clear, BS WNL, IV removed, catheter intact. Patient rates left LE discomfort 2/, tylenol given once. LE is wrapped with mahnaz bandage C/D/I. Patient tolerating regular diet and urinating well. Patient independent using crutches. Patient signed belongings sheet and discharge form, all questions answered. Patient left the floor by wheelchair to home at 1240.
== END 2024-11-08 12:40 | disposition home or self-care (01) | DRG 603 ==
LOC: ED 18:25 → MEDSURG 18:57
PROVIDERS: Orthopaedic Surgery Sports Medicine; Physician Assistant; Admitting Provider Family Medicine; Emergency Provider Family Medicine; Visit Provider Family Medicine
DX: L03.116 Cellulitis of left lower limb (principal); I82.812 Embolism and thrombosis of superficial veins of left lower extremity; L02.416 Cutaneous abscess of left lower limb; E78.5 Hyperlipidemia, unspecified; F41.9 Anxiety disorder, unspecified; B95.7 Other staphylococcus as the cause of diseases classified elsewhere; Z89.512 Acquired absence of left leg below knee; Z96.641 Presence of right artificial hip joint
CPT/HCPCS: 01320; 36415; 73718; 80048; 85025; 85027; 85379; 86140; 87040; 87070; 87075; 87186; 87205; 93971; 99284; 99285; A9270; J0295; J1100; J1650; J2250; J2405; J2704; J3010; J3372; J7050; J7120